=== PATIENT | female | born 1955 ===

== ENCOUNTER 2017-02-19 01:19 | Inpatient (IN) ==
--- NOTE | 2017-02-19 01:43 | Emergency Department Note ---
Davin Shipman Brittany, am scribing for, and in the presence of, Manohar Martínez MD 01:35. Mauricio Shipman Robert M, MD, personally performed the services described in this documentation, ascribed by Viridiana Jin in my presence, and it is both accurate and complete . Arrival - Arrival Chief Complaint: Shortness of Breath Stated Complaint: short ED Nursing Triage Note: patient to ED via EMS as a transfer from [facility] for further evaluation of elevated BNP, troponin, and D Dimer. patient has been SOB and couging for greater than 1 week. Mode of Arrival: Stretcher Limitations: No Limitations Source: Patient, RN Notes Reviewed Time Seen by Provider: 02/19/17 01:31 - History of Present Illness HPI Narrative: Patient is a 61 y/o [place] female presenting to the ED by EMS from [facility] for further evaluation of elevated BNP, Troponin, and D Dimer. Patient states that she presented to [facility] with c/o dyspnea, cough, and chest pain. Patient reports that chest pain is worsened upon coughing and describes this pain as sharp. Pain radiates under bilateral breasts and into her back. Patient states that after 3 breathing treatments at [facility], breathing became somewhat better for her. Patient in room has an oxygen saturation of 100% on 2L via NC. She has no other complaint/pain. Allergies/Adverse Reactions: Allergies Allergy/AdvReac Type Severity Reaction Status Date / Time clonidine AdvReac Fainting Verified 02/19/17 01:24 Home Medications: Home Medications Medication Instructions Recorded Confirmed Type B-Complex with Vitamin C [Vitamin 1 each PO BEDTIME 05/05/15 06/19/16 History B-Complex with Vit C] Calcium Acetate 1,334 mg PO TID W/MEALS 05/05/15 06/19/16 History Docusate Sodium 100 mg PO DAILY 05/05/15 06/19/16 History Lisinopril 40 mg PO DAILY 05/05/15 06/19/16 History Acetaminophen Tab [Tylenol Tab] 650 mg PO Q6H PRN #0 tablet 05/08/15 06/19/16 Rx Aspirin EC Tab 81 mg PO DAILY tablet 05/08/15 06/19/16 Rx Clorazepate [Tranxene] 3.75 mg PO BID #60 tablet 05/08/15 06/19/16 Rx Insulin Detemir [Levemir] 6 unit SUBCUT DAILY W/SUPPER #0 05/08/15 06/19/16 Rx Iron Sucrose [Venofer] 50 mg IV WITH DIALYSIS PRN #0 vial 05/08/15 06/19/16 Rx Isosorbide Mononitrate [Imdur] 30 mg PO DAILY #30 tablet 05/08/15 06/19/16 Rx Multivitamin (Berocca) [Berocca] 1 tablet PO BEDTIME #30 tablet 05/08/15 Rx NIFEdipine XL TAB [Procardia Xl] 90 mg PO BEDTIME #30 tablet 05/08/15 06/19/16 Rx HYDROcodone/ACETAMIN 7.5-325 1 tablet PO Q4H PRN #20 tablet 02/03/16 06/19/16 Rx [[place] 7.5-325] hydrALAZINE TAB [Apresoline Tab] 25 mg PO TID 02/19/17 02/19/17 History Review of System - Review of System 12 point system: reviewed and no additional remarkable complaints except as stated - Review of System Constitutional: Absent: chills, fever Eyes: Absent: vision change Respiratory: Present: cough, respiratory distress, wheezing Cardiovascular: Present: chest pain Gastrointestinal: Absent: abdominal pain, nausea, vomiting, diarrhea, constipation Genitourinary female: Absent: dysuria, frequency, urgency Musculoskeletal: Present: back pain. Absent: arm pain, leg pain, neck pain Skin: Absent: rash Neurological: Absent: headache Psychiatric: Absent: anxiety, depression Medical,Surgical,& Family Hx - Medical History Neurology: History of: TIA HEENT: History of: HEENT Problems (sinus) Endocrine: History of: Diabetes Mellitus (NIDDM) Respiratory: History of: Obstructive Sleep Apnea Renal: History of: Dialysis, Renal Failure, Renal Problems (End Stage Renal Disease) Gastrointestinal: History of: GERD Musculoskeletal: History of: Musculoskeletal Problems (chronic leg cramps) Hematology: History of: Anemia (he may of chronic disease) - Surgical History HEENT Surgeries: Surgical HX of: Tonsilectomy & Adenoidectomy (tonsillectormy) Abdominal Surgeries: Surgical HX of: Cholecystectomy Reproductive Surgeries: Surgical HX of;: Gynecologic Surgery (Total hysterectomy ), Hysterectomy - Family History Family History: Reports;: Family Cancer (her father had colon cancer), Family Diabetes, Family Heart Disease (both of her parents had MIs), Family Hypertension (Mother) - Social History Smoking Status: Never smoker Frequency of Alcohol Use: None Type of Drug Use: None Exam Vital Signs: Vital Signs Temperature 98.5 F 02/19/17 01:29 Pulse Rate 95 H 02/19/17 05:32 Respiratory Rate 18 02/19/17 05:32 Blood Pressure 179/71 02/19/17 05:32 O2 Sat by Pulse Oximetry 98 02/19/17 05:32 - General General appearance: alert, in no apparent distress - Head Head exam: Present: atraumatic, normocephalic, normal inspection - Eye Eye exam: Present: normal appearance, PERRL, EOMI - ENT ENT exam: Present: normal exam, normal oropharynx - Neck Neck exam: Present: normal inspection, full ROM, trachea midline - Chest Chest inspection: Present: normal inspection, symmetric chest wall rise - Respiratory Respiratory exam: Present: rhonchi (bilateral rhonchi), other (oxygen saturation of 100% on 2L via NC). Absent: normal lung sounds bilaterally - Cardiovascular Cardiovascular exam: Present: regular rate, normal rhythm, normal heart sounds. Absent: murmur, rubs, gallop - Abdominal Exam Abdominal exam: Present: soft, normal bowel sounds. Absent: distention, tenderness - Extremities Exam Extremities exam: Present: normal inspection - Back Exam Back exam: Present: normal inspection - Neurological Exam Neurological exam: Present: alert, oriented X3, CN II-XII intact. Absent: motor sensory deficit - Psychiatric Psychiatric exam: Present: normal affect, normal mood - Skin Skin exam: Present: warm, dry, intact, normal color Course - Consultations Consultation #1: Dr. Perdomo, the hospitalist will admit the patient. Time: 02:29 Results - Labs Lab Results: I have reviewed the patients labs Labs: Total Creatine Kinase 125 U/L (26-192) 02/19/17 01:41 CK-MB (CK-2) 1.1 U/L (0.5-3.6) 02/19/17 01:41 Troponin I 0.028 NG/ML (0.00-0.045) 02/19/17 01:41 B-Natriuretic Peptide 524 PG/ML (2-100) H 02/19/17 01:41 - Diagnostic Findings Procedure: Chest x-ray: image reviewed by me (Pulmonary edema demonstrated on chest x-ray from [facility] Disposition Clinical Impression: ESRD (end stage renal disease) on dialysis, HTN (hypertension), Diabetes, Congestive heart failure, Pleuritic chest pain Case discussed with: patient, patient's family Disposition: Still a Patient Condition: Stable Time of Disposition: 02:29
[2017-02-19 02:38] LABS: Troponin I Only 0.028 NG/ML (0.00-0.045)
--- NOTE | 2017-02-19 05:27 | Hospitalist History & Physical ---
Assessment and Plan (1) Acute on chronic heart failure Status: Acute Assessment and plan: Patient is not sure of her dry weight but with the crackles and orthopnea it is not likely she is getting enough fluid pulled off on dialysis in relation to her intake of fluids As needed nitroglycerin for dyspnea Nasal cannula oxygen and monitor on pulse oximetry Respiratory status is stable Unable to treat with diuretics given lack of residual renal function Consult nephrology for dialysis in the morning Current Visit: Yes (2) Pleuritic chest pain Status: Acute Assessment and plan: Likely secondary to coughing low concern for ACS Current Visit: Yes (3) Diabetes Status: Chronic Assessment and plan: Reportedly takes only Levemir 6 units daily at home. Hold this for now. 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 Currently electrolytes and acid-base status is stable. She does seem volume overloaded however and needs dialysis tomorrow. Nephrology consulted. Her primary studio musician is Dr. Chisholm Current Visit: Yes (5) HTN (hypertension) Status: Acute Assessment and plan: Difficult to control secondary to sleep apnea and ESRD Continue home hydralazine, lisinopril, ISMN, Procardia Removing volume on dialysis will likely improve the blood pressure Current Visit: Yes Qualifiers: Hypertension type: secondary to other renal disorders Qualified Code(s): I15.1 - Hypertension secondary to other renal disorders; N28.89 - Other specified disorders of kidney and ureter History of Present Illness Chief complaint: Shortness of breath History of present illness: Ms. Márquez is a 61 year old female with history of end-stage renal disease, receiving dialysis TTS at [facility] via a right femoral aVF, TIA, hypertension, B12 and vitamin D deficiencies, insulin-dependent diabetes, congestive heart failure the presented with a chief complaint of shortness of breath. Onset abrupt. Duration 1 week. Exacerbated by lying down and exertion. Relieved by sitting up and nebs treatments. Associated with sinus congestion, subjective fever, minimally productive cough of clear sputum, pleuritic chest pain worse on the right. Has chronic lower extremity swelling. Patient does not believe that she is drinking excessive fluids. She denied missing any dialysis sessions. She does not make much urine. She is unsure whether or not she feels any improvement after her regular dialysis sessions this week. She presented first to the [facility] and then was transferred to [place]. At the other facility she was given Rocephin, Symbicort. Dr. Chisholm is her studio musician. I have reviewed the workup in the emergency department of both facilities including labs and imaging data. I have discussed her case with the emergency room providers. I discussed CODE STATUS with her and she requested DO NOT RESUSCITATE. Home Medications Medication Instructions Recorded Confirmed Type hydrALAZINE TAB [Apresoline Tab] 25 mg PO TID 02/19/17 02/19/17 History Allergies Allergy/AdvReac Type Severity Reaction Status Date / Time clonidine AdvReac Fainting Verified 02/19/17 01:24 Medical,Surgical,& Family Hx - Medical History Cardio: History of: Hypertension Neurology: History of: TIA HEENT: History of: HEENT Problems (sinus) Endocrine: History of: Diabetes Mellitus (IDDM) Respiratory: History of: Obstructive Sleep Apnea Renal: History of: Dialysis, Renal Failure, Renal Problems (End Stage Renal Disease) Gastrointestinal: History of: GERD Musculoskeletal: History of: Musculoskeletal Problems (chronic leg cramps) Hematology: History of: Anemia (he may of chronic disease) - Surgical History Cardiac Surgeries: Sugical HX of: Vascular Access Devices HEENT Surgeries: Surgical HX of: Tonsilectomy & Adenoidectomy (tonsillectormy) Abdominal Surgeries: Surgical HX of: Cholecystectomy Reproductive Surgeries: Surgical HX of;: Gynecologic Surgery (Total hysterectomy ), Hysterectomy - Family History Family History: Reports;: Family Cancer (her father had colon cancer), Family Diabetes, Family Heart Disease (both of her parents had MIs), Family Hypertension (Mother) - Social History Smoking Status: Never smoker Frequency of Alcohol Use: None Type of Drug Use: None Marital Status: Single Lives With:: Alone Functional capacity: uses cane/walker Review of systems: - Constitutional Constitutional: Present: Fevers absent: chills, fatigue, night sweats, weight loss - EENT Eyes: Absent: blurry vision Ears: Absent: decreased hearing, ear pain Nose, mouth and throat: Present: Nasal congestion, sore throat - Cardiovascular Cardiovascular: Present: Pleuritic chest pain on right - Respiratory Respiratory: Present: cough, dyspnea - Gastrointestinal Gastrointestinal: Absent: abdominal pain, constipation, diarrhea, dysphagia, hematemesis, hematochezia, melena, nausea, vomiting - Genitourinary Genitourinary: Present: Makes little urine - Musculoskeletal Musculoskeletal: Absent: arthralgias, joint swelling, myalgias - Neurological Neurological: Present: Diabetic nephropathy in bilateral feet absent: confusion , dizziness, focal weakness, headache(s), syncope - Psychiatric Psychiatric: Absent: anxiety, depression - Endocrine Endocrine: Absent: cold intolerance, heat intolerance, polydipsia, polyuria - Hematologic/Lymphatic Hematologic/Lymphatic: Absent: easy bleeding, easy bruising, lymphadenopathy Exam - Constitutional Vitals: Period Temp Pulse Resp BP Sys/Barrett Pulse Ox Last 24 Hr 98.5 F-98.5 F 79-100 11-20 155-173/59-80 99-100 General appearance: over weight (Middle-aged [place] female sitting up in a stretcher pleasant cooperative) Exam: - Eye Eye exam: Present: EOMI. Absent: conjunctival injection, scleral icterus Pupils: Present: EDWIN - ENT ENT exam: Present: normal external ear exam, normal oropharynx - Expanded ENT Exam Mouth exam: Present: moist - Neck Neck exam: Present: normal inspection. Absent: lymphadenopathy, thyromegaly - Respiratory Respiratory exam: Present: Bibasilar wet crackles. Absent: wheezes - Cardiovascular Cardiovascular exam: Present: regular rate and rhythm. Absent: diastolic murmur , systolic murmur Chest: Right chest pain reproducible with palpation Peripheral: AVF and right groin with good thrill - GI/Abdominal GI/Abdominal exam: Present: normal bowel sounds, soft. Absent: distended, hyperactive bowel sounds, hypoactive bowel sounds, organomegaly, tenderness, rebound - Extremities Exam Extremities exam: Present: Mild bilateral lower extremity edema - Neurological Exam Neurological exam: Present: alert, oriented X3, CN II-XII intact. Absent: motor sensory deficit - Psychiatric Psychiatric exam: Present: normal affect - Skin Skin exam: Present: warm, dry. Absent: diaphoretic, rash Results - EKG EKG results: sinus rhythm - Diagnostic Findings Procedure: Chest x-ray: report reviewed by me
[2017-02-19] MEDS ORDERED: DEXTROSE 50% 25 GM/50 ML VIAL IV PRN (05:42)
[2017-02-19] MEDS ORDERED: ACETAMINOPHEN 325 MG TABLET PO PRN (05:42)
[2017-02-19] MEDS ORDERED: NITROGLYCERIN SL 0.4 MG TABLET SL PRN (05:42)
[2017-02-19] MEDS ORDERED: GLUCAGON 1 MG VIAL IM PRN (05:42)
[2017-02-19] MEDS: HEPARIN 5,000 UNIT/1 ML VIAL SUBCUT SCH ×3 (06:13→22:04)
[2017-02-19] MEDS: LISINOPRIL 20 MG TABLET PO SCH (08:24)
[2017-02-19] MEDS: CALCIUM ACETATE 667 MG CAPSULE PO SCH ×3 (08:25→17:02)
[2017-02-19] MEDS: ASPIRIN EC 81 MG TABLET PO SCH (08:25)
[2017-02-19] MEDS: ISOSORBIDE MONONITRATE 30 MG TABLET PO SCH (08:25)
--- NOTE | 2017-02-19 08:35 | Nephrology Consult Note ---
History of Present Illness Chief complaint: ESRD History of present illness: Ms. Márquez is a 61 year old female with end-stage renal disease. She has underlying diabetes mellitus and dialyzes at the facility a few dialysis unit. She was sent from [facility] after complaining of a cough and some shortness of breath. Chest x-ray reviewed at the [facility] but not available to us now is said to have demonstrated volume overload. On physical exam she is in no distress she is eating. She has a chest with bibasilar rales and heart without rub or gallop. Abdomen soft nontender extremities without edema and she has a right groin [place] graft which is patent. Lab available here demonstrates a BNP of about 500. Impression is end-stage renal disease #2 volume overload which appears to be mild #3 diabetes mellitus. Plan hemodialysis today with attempted volume removal #2 we will get a chest x -ray here tomorrow Home Medications Medication Instructions Recorded Confirmed Type B-Complex with Vitamin C [Vitamin 1 each PO BEDTIME 05/05/15 02/19/17 History B-Complex with Vit C] Calcium Acetate 1,334 mg PO TID W/MEALS 05/05/15 02/19/17 History Docusate Sodium 100 mg PO DAILY 05/05/15 02/19/17 History Lisinopril 40 mg PO DAILY 05/05/15 02/19/17 History Acetaminophen Tab [Tylenol Tab] 650 mg PO Q6H PRN #0 tablet 05/08/15 02/19/17 Rx Aspirin EC Tab 81 mg PO DAILY tablet 05/08/15 02/19/17 Rx Clorazepate [Tranxene] 3.75 mg PO BID #60 tablet 05/08/15 02/19/17 Rx Insulin Detemir [Levemir] 6 unit SUBCUT DAILY W/SUPPER #0 05/08/15 02/19/17 Rx Iron Sucrose [Venofer] 50 mg IV WITH DIALYSIS PRN #0 vial 05/08/15 02/19/17 Rx Isosorbide Mononitrate [Imdur] 30 mg PO DAILY #30 tablet 05/08/15 02/19/17 Rx Multivitamin (Berocca) [Berocca] 1 tablet PO BEDTIME #30 tablet 05/08/15 Rx NIFEdipine XL TAB [Procardia Xl] 90 mg PO BEDTIME #30 tablet 05/08/15 02/19/17 Rx HYDROcodone/ACETAMIN 7.5-325 1 tablet PO Q4H PRN #20 tablet 02/03/16 02/19/17 Rx [[place] 7.5-325] hydrALAZINE TAB [Apresoline Tab] 25 mg PO TID 02/19/17 02/19/17 History Allergies Allergy/AdvReac Type Severity Reaction Status Date / Time clonidine AdvReac Fainting Verified 02/19/17 01:24 Medical,Surgical,& Family Hx - Medical History Cardio: History of: Hypertension Neurology: History of: TIA HEENT: History of: HEENT Problems (sinus) Endocrine: History of: Diabetes Mellitus (IDDM), Diabetes Mellitus (NIDDM) Respiratory: History of: Obstructive Sleep Apnea Renal: History of: Dialysis, Renal Failure, Renal Problems (End Stage Renal Disease) Gastrointestinal: History of: GERD Musculoskeletal: History of: Musculoskeletal Problems (chronic leg cramps) No history of: Amputation Hematology: History of: Anemia (he may of chronic disease) - Surgical History Cardiac Surgeries: Sugical HX of: Vascular Access Devices HEENT Surgeries: Surgical HX of: Tonsilectomy & Adenoidectomy (tonsillectormy) Abdominal Surgeries: Surgical HX of: Cholecystectomy Reproductive Surgeries: Surgical HX of;: Gynecologic Surgery (Total hysterectomy ), Hysterectomy - Family History Family History: Reports;: Family Cancer (her father had colon cancer), Family Diabetes, Family Heart Disease (both of her parents had MIs), Family Hypertension (Mother) - Social History Smoking Status: Never smoker Frequency of Alcohol Use: None Type of Drug Use: None Review of Systems 12 point system: reviewed and no additional remarkable complaints except as stated Exam - Vital Signs Vital signs: Period Temp Pulse Resp BP Sys/Barrett Pulse Ox Last 24 Hr 98.3 F 88-95 18-22 179-186/71-79 98-100 - General Appearance General appearance: well-developed, well-nourished, appears started age EENT: ATNC Neck: no JVD, no thyromegaly, no carotid bruit, supple Respiratory: no kyphosis, no scoliosis Cardiology: no murmurs, no rub, no gallops, no edema, regular rate, regular rhythm, normal S1, normal S2 Gastrointestinal: normoactive bowel sounds Integumentary: no rash, warm and dry Neurologic: no focal deficit, no asterixis, alert and oriented x3, reflexes 2+ and symmetric, gait normal, strength 5/5 Musculoskeletal: no deformities, no erythema, no cyanosis, no clubbing Psychiatric: mood/affect appropriate (R groin AV graft patent), cooperative Assessment and Plan (1) ESRD (end stage renal disease) on dialysis Status: Chronic Current Visit: Yes (2) Diabetes Status: Chronic Current Visit: Yes Qualifiers: Diabetes mellitus type: type 2 Diabetes mellitus complication detail: with chronic kidney disease Diabetes mellitus nursing home insulin use: with nursing home use Chronic kidney disease stage: on chronic dialysis Qualified Code(s) : E11.610 - Type 2 diabetes mellitus with diabetic neuropathic arthropathy Specialty Discharge - Follow Up or Referrals - Speciality Discharge Instructions Nephrology Instructions: Hemodialysis today
[2017-02-19] MEDS: INSULIN LISPRO 100 UNIT/ML SUBCUT SCH ×4 (09:13→20:42)
--- NOTE | 2017-02-19 11:43 | Dialysis Note ---
Dialysis Note - Dialysis Note Ms. Márquez is seen during her hemodialysis. She is tolerating dialysis well and we are attempting to remove 3 kg of volume this will result in a lower weight than she has been and hopefully that will help some of her shortness of breath. A chest x-ray is to be done tomorrow.
[2017-02-19] MEDS: ALBUTEROL/IPRATROPIUM 3 ML NEB RESP TX PRN (18:41)
[2017-02-20] MEDS: ALBUTEROL/IPRATROPIUM 3 ML NEB RESP TX PRN ×3 (00:36→15:16)
[2017-02-20] MEDS: HEPARIN 5,000 UNIT/1 ML VIAL SUBCUT SCH ×2 (04:59→15:30)
[2017-02-20] MEDS: INSULIN LISPRO 100 UNIT/ML SUBCUT SCH ×4 (07:23→22:00)
[2017-02-20] MEDS: CALCIUM ACETATE 667 MG CAPSULE PO SCH ×3 (07:46→16:10)
[2017-02-20] MEDS: LISINOPRIL 20 MG TABLET PO SCH (08:05)
[2017-02-20] MEDS: ISOSORBIDE MONONITRATE 30 MG TABLET PO SCH (08:05)
[2017-02-20] MEDS: ASPIRIN EC 81 MG TABLET PO SCH (08:05)
--- NOTE | 2017-02-20 09:24 | Nephrology Progress Note ---
Nephrology - PN: Subj Interval history: Ms. Vania Márquez is improved following yesterday's dialysis. We attempted to remove a good bit of fluid to decrease her dry weight. Today's chest x-ray still demonstrates changes compatible with fluid overload. She does say that she thinks she lost weight lately due to anorexia. She has some end expiratory wheeze but is generally improved and we will make efforts to further decrease her weight with dialysis. Dr. Chisholm will follow her for nephrology beginning tomorrow. Exam (PN)-Nephrology - Vital Signs Vital signs: Period Temp Pulse Resp BP Sys/Barrett Pulse Ox Last 24 Hr 97.0 F-98.9 F 85-92 16-20 125-167/54-79 94-99 Assessment and Plan (1) ESRD (end stage renal disease) on dialysis Status: Chronic Current Visit: Yes (2) Diabetes Status: Chronic Current Visit: Yes Qualifiers: Diabetes mellitus type: type 2 Diabetes mellitus complication detail: with chronic kidney disease Diabetes mellitus correction insulin use: with correction use Chronic kidney disease stage: on chronic dialysis Qualified Code(s) : E11.610 - Type 2 diabetes mellitus with diabetic neuropathic arthropathy
--- NOTE | 2017-02-20 10:27 | Hospitalist Progress Note ---
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 Reports chest congestion and a nose bleed overnight. Will switch to humidified air. HD performed yesterday, nephrology assisting. Exam - Constitutional Vitals: Period Temp Pulse Resp BP Sys/Barrett Pulse Ox Last 24 Hr 97.0 F-98.9 F 85-94 16-20 125-167/54-79 94-99 General appearance: over weight - Head Head exam: Present: normocephalic, atraumatic - Eye Eye exam: Present: EOMI Pupils: Present: EDWIN - ENT ENT exam: Present: normal exam - Neck Neck exam: Present: normal inspection - Respiratory Respiratory exam: Present: clear to auscultation bilaterally. Absent: rhonchi, wheezes - Cardiovascular Cardiovascular exam: Present: regular rate and rhythm - GI/Abdominal GI/Abdominal exam: Present: normal bowel sounds, soft. Absent: tenderness, rebound - Extremities Exam Extremities exam: Present: normal inspection - Back Exam Back exam: Present: normal inspection - Neurological Exam Neurological exam: Present: alert, oriented X3 - Psychiatric Psychiatric exam: Present: normal affect, normal mood - Skin Skin exam: Present: warm, intact Quality Measures - VTE Contraindication to Mechanical VTE Prophylaxis: Ischemic Vascular Disease
--- NOTE | 2017-02-20 10:54 | XRay Report ---
Exam: Chest 2 views Date: February 20, 2017 at 7:29 AM Comparison: Chest 2 views February 18, 2017 Reason: Follow-up volume overload Findings: There is borderline cardiomegaly and prominent calcified plaque at the thoracic aorta. There may also be calcified mediastinal and hilar lymph nodes. There are scattered opacities within both lower lung zones, and prominence of the interstitial markings bilaterally. This likely represents pulmonary edema and atelectasis, but pneumonia is not excluded. No pneumothorax is identified, but there is mild bilateral pleural fluid. The osseous structures appear stable. Surgical clips are noted within the right upper abdomen. Impression: There is decreased atelectasis and possible decreased pleural fluid at the right lung base. The study is otherwise similar to before. PROCEDURE INTERPRETED AT [facility] DEPARTMENT OF RADIOLOGY Final Report Signed by: Dr. Luis Hidalgo
[2017-02-20] MEDS: guaiFENesin/DM ER 600-30 MG TABLET PO SCH (22:01)
[2017-02-21] MEDS: HEPARIN 5,000 UNIT/1 ML VIAL SUBCUT SCH ×3 (00:10→17:59)
[2017-02-21 07:39] LABS: Basophils % 0.3 % (0.0-0.8); Eosinophils # 0.5 10*3/uL (0.0-0.87); Eosinophils % 6.6 % (0.00-10.9); Hematocrit 28.9 VOL% (35.7-47.0); Hemoglobin 9.3 GM/DL (12.0-16.0); Immature Granulocytes % 0.4 %; Immature Granulocytes Absolute 0.03 #; Lymphocytes # 1.1 10*3/uL (1.4-4.0); Lymphocytes % 15.3 % (21.3-54.2); Mean Corpuscular HGB Conc 32.2 GM/DL (32-36); Mean Corpuscular Hemoglobin 30 PG (27-34); Mean Corpuscular Volume 94.1 FL (87-102); Mean Platelet Volume 10.8 FL (9.6-12.0); Monocytes # 0.7 10*3/uL (0.11-0.8); Monocytes % 9.7 % (1.7-12.7); Neutrophils # 4.7 10*3/uL (1.4-7.4); Neutrophils % 67.7 % (38.7-73.9); Platelet Count 153 T/CUMM (130-400); Red Blood Count 3.07 MC/CUMM (3.8-5.5); Red Cell Distribution Width 15.7 % (9.3-17.3)
[2017-02-21 08:15] LABS: Calcium 9.1 MG/DL (8.5-10.1); Magnesium 2.5 MG/DL (1.8-2.4); Osmolality,Calculated 288.8 MOS/KG (273-304); Potassium 5.2 MMOL/L (3.5-5.1)
[2017-02-21] MEDS ORDERED: hydrALAZINE 25 MG TABLET ONE (09:04)
[2017-02-21] MEDS: LISINOPRIL 20 MG TABLET PO SCH (09:12)
[2017-02-21] MEDS: guaiFENesin/DM ER 600-30 MG TABLET PO SCH ×2 (09:12→20:24)
[2017-02-21] MEDS: ISOSORBIDE MONONITRATE 30 MG TABLET PO SCH (09:12)
[2017-02-21] MEDS: ASPIRIN EC 81 MG TABLET PO SCH (09:12)
[2017-02-21] MEDS: INSULIN LISPRO 100 UNIT/ML SUBCUT SCH ×4 (09:13→20:05)
[2017-02-21] MEDS: CALCIUM ACETATE 667 MG CAPSULE PO SCH ×3 (09:13→17:00)
--- NOTE | 2017-02-21 12:24 | Nephrology Progress Note ---
Nephrology - PN: Subj Interval history: She still has some shortness of breath and nonproductive cough. She denies pleuritic chest pain. She has been afebrile. Exam (PN)-Nephrology - Vital Signs Vital signs: Period Temp Pulse Resp BP Sys/Barrett Pulse Ox Last 24 Hr 98.0 F-99.1 F 83-100 18-20 144-157/60-73 90-97 Exam: ENT: Normal Cardiovascular: Regular rate and rhythm. No murmur rub or gallop Lungs: Bibasilar rales. Right greater than left Extremities: No edema - Lab 02/21/17 06:02 02/21/17 06:02 Most recent lab results Calcium 9.1 MG/DL (8.5-10.1) 02/21/17 06:02 Magnesium 2.5 MG/DL (1.8-2.4) H 02/21/17 06:02 Assessment and Plan (1) ESRD (end stage renal disease) on dialysis Status: Acute Assessment and plan: 61-year-old woman with: * ESRD. Dialyzed Tuesday * Pulmonary edema. She will be dialyzed again today with volume removal as tolerated * Diabetes mellitus * Hypertension Current Visit: Yes (2) Pulmonary edema Status: Acute Current Visit: Yes (3) Diabetes Status: Acute Current Visit: Yes (4) HTN (hypertension) Status: Acute Current Visit: Yes
--- NOTE | 2017-02-21 13:50 | Hospitalist Progress Note ---
Assessment and Plan (1) ESRD (end stage renal disease) on dialysis Status: Chronic Assessment and plan: HD per nephrology, TTS schedule outpatient Current Visit: Yes (2) HTN (hypertension) Status: Chronic Current Visit: Yes Qualifiers: Hypertension type: secondary to other renal disorders Qualified Code(s): I15.1 - Hypertension secondary to other renal disorders; N28.89 - Other specified disorders of kidney and ureter (3) Diabetes Status: Chronic Current Visit: Yes Qualifiers: Diabetes mellitus type: type 2 Diabetes mellitus complication detail: with chronic kidney disease Diabetes mellitus supervisor intermediates insulin use: with penitentiary use Chronic kidney disease stage: on chronic dialysis Qualified Code(s) : E11.610 - Type 2 diabetes mellitus with diabetic neuropathic arthropathy (4) Acute on chronic heart failure Status: Acute Assessment and plan: Removing fluid with HD, nephrology assisting Will undergo HD today Current Visit: Yes Hospitalist: Subjective Interval history: No acute events overnight. Only complaint was of headache this am, denied sob. Nephrology to dialyize today. Possible discharge soon. Exam - Constitutional Vitals: Period Temp Pulse Resp BP Sys/Barrett Pulse Ox Last 24 Hr 98.0 F-99.1 F 83-100 18-20 144-157/60-73 90-97 General appearance: over weight - Head Head exam: Present: normocephalic, atraumatic - Eye Eye exam: Present: EOMI Pupils: Present: EDWIN - ENT ENT exam: Present: normal exam - Neck Neck exam: Present: normal inspection - Respiratory Respiratory exam: Present: clear to auscultation bilaterally. Absent: rhonchi, wheezes - Cardiovascular Cardiovascular exam: Present: regular rate and rhythm - GI/Abdominal GI/Abdominal exam: Present: normal bowel sounds, soft. Absent: tenderness, rebound - Extremities Exam Extremities exam: Present: normal inspection - Back Exam Back exam: Present: normal inspection - Neurological Exam Neurological exam: Present: alert, oriented X3 - Psychiatric Psychiatric exam: Present: normal affect, normal mood - Skin Skin exam: Present: warm, intact Results - Labs CBC & BMP: 02/21/17 06:02 02/21/17 06:02 Quality Measures - VTE Contraindication to Mechanical VTE Prophylaxis: Ischemic Vascular Disease
[2017-02-22] MEDS: HEPARIN 5,000 UNIT/1 ML VIAL SUBCUT SCH ×4 (00:01→23:09)
[2017-02-22 05:33] LABS: Basophils % 0.4 % (0.0-0.8); Eosinophils # 0.5 10*3/uL (0.0-0.87); Eosinophils % 8.6 % (0.00-10.9); Hematocrit 27.7 VOL% (35.7-47.0); Hemoglobin 8.7 GM/DL (12.0-16.0); Immature Granulocytes % 0.4 %; Immature Granulocytes Absolute 0.02 #; Lymphocytes # 1.1 10*3/uL (1.4-4.0); Lymphocytes % 20.2 % (21.3-54.2); Mean Corpuscular HGB Conc 31.4 GM/DL (32-36); Mean Corpuscular Hemoglobin 30 PG (27-34); Mean Corpuscular Volume 94.5 FL (87-102); Mean Platelet Volume 9.7 FL (9.6-12.0); Monocytes # 0.5 10*3/uL (0.11-0.8); Monocytes % 8.8 % (1.7-12.7); Neutrophils # 3.5 10*3/uL (1.4-7.4); Neutrophils % 61.6 % (38.7-73.9); Platelet Count 149 T/CUMM (130-400); Red Blood Count 2.93 MC/CUMM (3.8-5.5); Red Cell Distribution Width 15.2 % (9.3-17.3); White Blood Count 5.6 T/CUMM (4-12)
[2017-02-22 06:05] LABS: Calcium 8.9 MG/DL (8.5-10.1); Magnesium 2.4 MG/DL (1.8-2.4); Osmolality,Calculated 274.4 MOS/KG (273-304); Potassium 4.4 MMOL/L (3.5-5.1)
[2017-02-22] MEDS: INSULIN LISPRO 100 UNIT/ML SUBCUT SCH ×4 (08:08→20:05)
[2017-02-22] MEDS: guaiFENesin/DM ER 600-30 MG TABLET PO SCH ×2 (08:41→20:17)
[2017-02-22] MEDS: CALCIUM ACETATE 667 MG CAPSULE PO SCH ×3 (08:41→16:36)
[2017-02-22] MEDS: ASPIRIN EC 81 MG TABLET PO SCH (08:42)
--- NOTE | 2017-02-22 14:30 | Hospitalist Progress Note ---
Assessment and Plan (1) Fluid overload Status: Acute Assessment and plan: Patient is being dialysed Nephrology is following Current Visit: Yes (2) ESRD (end stage renal disease) on dialysis Status: Chronic Assessment and plan: continue Nephrology's recommendations Current Visit: Yes (3) HTN (hypertension) Status: Chronic Assessment and plan: stable on current meds Current Visit: Yes Qualifiers: Hypertension type: secondary to other renal disorders Qualified Code(s): I15.1 - Hypertension secondary to other renal disorders; N28.89 - Other specified disorders of kidney and ureter (4) Diabetes Status: Chronic Assessment and plan: controlled on current regime Current Visit: Yes Qualifiers: Diabetes mellitus type: type 2 Diabetes mellitus complication detail: with chronic kidney disease Diabetes mellitus adjunct faculty for medical terminology insulin use: with adjunct faculty for medical terminology use Chronic kidney disease stage: on chronic dialysis Qualified Code(s) : E11.610 - Type 2 diabetes mellitus with diabetic neuropathic arthropathy (5) Acute on chronic heart failure Status: Acute Assessment and plan: continue with dialysis consider an Echo Current Visit: Yes Hospitalist: Subjective Interval history: patient seen. She had a session of dialysis yesterday and will be getting another session today Exam - Constitutional Vitals: Period Temp Pulse Resp BP Sys/Barrett Pulse Ox Last 24 Hr 97.2 F-99 F 69-80 16-20 128-146/55-71 90-100 General appearance: no acute distress - Head Head exam: Present: normal inspection - Respiratory Respiratory exam: Present: rales, stridor, other - Cardiovascular Cardiovascular exam: Present: regular rate and rhythm - GI/Abdominal GI/Abdominal exam: Present: normal bowel sounds - Extremities Exam Extremities exam: Present: normal inspection Results - Labs CBC & BMP: 02/22/17 05:14 02/22/17 05:14 Lab Results: I have reviewed the past 24 hour labs Quality Measures - VTE Contraindication to Mechanical VTE Prophylaxis: Ischemic Vascular Disease
[2017-02-22] MEDS: LISINOPRIL 20 MG TABLET PO SCH (15:09)
[2017-02-22] MEDS: ISOSORBIDE MONONITRATE 30 MG TABLET PO SCH (15:10)
--- NOTE | 2017-02-22 23:02 | Nephrology Progress Note ---
Nephrology - PN: Subj Interval history: Seen during dialysis. Blood pressure stable. Mild SoB persists Exam (PN)-Nephrology - Vital Signs Vital signs: Period Temp Pulse Resp BP Sys/Barrett Pulse Ox Last 24 Hr 98.1 F-99.1 F 69-78 16-20 110-146/50-70 96-100 Exam: ENT: Normal Cardiovascular: Regular rate and rhythm. No murmur rub or gallop Lungs: Bilateral expiratory wheezes Extremities: No edema - Lab 02/22/17 05:14 02/22/17 05:14 Most recent lab results Calcium 8.9 MG/DL (8.5-10.1) 02/22/17 05:14 Magnesium 2.4 MG/DL (1.8-2.4) 02/22/17 05:14 Assessment and Plan (1) ESRD (end stage renal disease) on dialysis Status: Acute Assessment and plan: 61-year-old woman with: * ESRD. Stable during dialysis * Pulmonary edema. Significant volume has been removed during dialysis * Bronchospasm. Parasol frequency increased * Diabetes mellitus * Hypertension Current Visit: Yes (2) Pulmonary edema Status: Acute Current Visit: Yes (3) Diabetes Status: Acute Current Visit: Yes (4) HTN (hypertension) Status: Acute Current Visit: Yes
[2017-02-23] MEDS: ALBUTEROL/IPRATROPIUM 3 ML NEB RESP TX SCH ×4 (00:12→21:16)
[2017-02-23 06:30] LABS: Basophils % 0.7 % (0.0-0.8); Eosinophils # 0.3 10*3/uL (0.0-0.87); Eosinophils % 5.6 % (0.00-10.9); Hematocrit 31.6 VOL% (35.7-47.0); Hemoglobin 10.2 GM/DL (12.0-16.0); Immature Granulocytes % 0.5 %; Immature Granulocytes Absolute 0.03 #; Lymphocytes # 1.2 10*3/uL (1.4-4.0); Lymphocytes % 19.9 % (21.3-54.2); Mean Corpuscular HGB Conc 32.3 GM/DL (32-36); Mean Corpuscular Hemoglobin 31 PG (27-34); Mean Corpuscular Volume 95.5 FL (87-102); Monocytes # 0.6 10*3/uL (0.11-0.8); Monocytes % 9.2 % (1.7-12.7); Neutrophils # 3.9 10*3/uL (1.4-7.4); Neutrophils % 64.1 % (38.7-73.9); Platelet Count 182 T/CUMM (130-400); Red Blood Count 3.31 MC/CUMM (3.8-5.5); White Blood Count 6.1 T/CUMM (4-12)
[2017-02-23 07:07] LABS: Calcium 9.7 MG/DL (8.5-10.1); Osmolality,Calculated 285.4 MOS/KG (273-304); Potassium 5.1 MMOL/L (3.5-5.1)
--- NOTE | 2017-02-23 07:50 | XRay Report ---
XR chest 2V Indication: Wheezing Comparison: Chest x-ray dated February 20, 2017 Technique: Frontal and lateral views of the chest Findings: Continued mild cardiomegaly. Continued small bilateral pleural effusions. Mildly improved consolidation within the posterior left lung base with some residual remaining. Osseous and surrounding soft tissue structures appear grossly unchanged. IMPRESSION: As above. PROCEDURE INTERPRETED AT [facility] DEPARTMENT OF RADIOLOGY Final Report Signed by: Dr Jonathon Santana
[2017-02-23] MEDS: HEPARIN 5,000 UNIT/1 ML VIAL SUBCUT SCH ×2 (08:50→15:00)
[2017-02-23] MEDS: CALCIUM ACETATE 667 MG CAPSULE PO SCH ×3 (08:50→17:14)
[2017-02-23] MEDS: LISINOPRIL 20 MG TABLET PO SCH (08:50)
[2017-02-23] MEDS: ASPIRIN EC 81 MG TABLET PO SCH (08:50)
[2017-02-23] MEDS: INSULIN LISPRO 100 UNIT/ML SUBCUT SCH ×4 (08:50→23:37)
[2017-02-23] MEDS: ISOSORBIDE MONONITRATE 30 MG TABLET PO SCH (08:51)
[2017-02-23] MEDS: guaiFENesin/DM ER 600-30 MG TABLET PO SCH ×2 (08:51→20:07)
--- NOTE | 2017-02-23 11:59 | Hospitalist Progress Note ---
Assessment and Plan (1) Fluid overload Status: Acute Assessment and plan: improving with dialysis Nephrology is following Current Visit: Yes (2) ESRD (end stage renal disease) on dialysis Status: Chronic Assessment and plan: continue Nephrology's recommendations Current Visit: Yes (3) HTN (hypertension) Status: Chronic Assessment and plan: stable on current meds Current Visit: Yes Qualifiers: Hypertension type: secondary to other renal disorders Qualified Code(s): I15.1 - Hypertension secondary to other renal disorders; N28.89 - Other specified disorders of kidney and ureter (4) Diabetes Status: Chronic Assessment and plan: controlled on current regime Current Visit: Yes Qualifiers: Diabetes mellitus type: type 2 Diabetes mellitus complication detail: with chronic kidney disease Diabetes mellitus nursing home insulin use: with nursing home use Chronic kidney disease stage: on chronic dialysis Qualified Code(s) : E11.610 - Type 2 diabetes mellitus with diabetic neuropathic arthropathy (5) Acute on chronic heart failure Status: Acute Assessment and plan: continue with dialysis consider an Echo Current Visit: Yes Hospitalist: Subjective Interval history: Patient seen this am. She feels much better. She had a repeat of dialysis yesterday and will hopefully go home after tomorrow's session. Exam - Constitutional Vitals: Period Temp Pulse Resp BP Sys/Barrett Pulse Ox Last 24 Hr 97.5 F-99.1 F 69-80 16-20 110-156/50-63 98-100 General appearance: no acute distress - Head Head exam: Present: normal inspection - Respiratory Respiratory exam: Present: other (lungs are clearer) - Cardiovascular Cardiovascular exam: Present: regular rate and rhythm - GI/Abdominal GI/Abdominal exam: Present: normal bowel sounds - Extremities Exam Extremities exam: Present: normal inspection - Neurological Exam Neurological exam: Present: alert, oriented X3 Results - Labs CBC & BMP: 02/23/17 06:13 02/23/17 06:13 Lab Results: I have reviewed the past 24 hour labs Quality Measures - VTE Contraindication to Mechanical VTE Prophylaxis: Ischemic Vascular Disease
--- NOTE | 2017-02-23 12:32 | ECHO Report ---
Vania Márquez Exam Date: 02/22/2017 15:54 Referring Physician: Technologist: Pita Louis Age: 61 Ht (in): 63 Wt (lb): 160 Gender: F Exam Location: [facility] Echo Indications: CHF, ESRD, Diabetes, Chest pain, SOB, Edema, HTN BP: 110 / 55 HR: 78 Rhythm: sinus rhythm Technical Quality: Good IMPRESSIONS 1. Left ventricle is normal size with concentric left ventricle hypertrophy. Ejection fraction 55+ percent. 2. Left atrium is mildly dilated. 3. Right-sided chambers are normal size. 4. Sclerotic mitral valve with posterior mitral annular calcification and trace to mild regurgitation. 5. Aortic valve is sclerotic but with normal function without stenosis or regurgitation. 6. Pulmonic and tricuspid valve are unremarkable. 7. Right-sided pressures are normal. 8. Trivial pericardial effusion hematocrit insignificant and a pleural effusion is present. MEASUREMENTS (Male / Female) Normal Values 2D ECHO LV Diastolic Diameter PLAX 4.2 cm 4.2 - 5.9 / 3.9 - 5.3 cm LV Systolic Diameter PLAX 3.1 cm LV Fractional Shortening PLAX 26.5 % IVS Diastolic Thickness 1.7 cm 0.6 - 1.0 / 0.6 - 0.9 cm LVPW Diastolic Thickness 1.4 cm 0.6 - 1.0 / 0.6 - 0.9 cm RV Internal Dim ED PLAX 2.6 cm Aortic Root Diameter 2.4 cm LA Systolic Diameter LX 4.2 cm 3.0 - 4.0 / 2.7 - 3.8 cm DOPPLER TR Peak Velocity 157.0 cm/s TR Peak Gradient 9.9 mmHg FINDINGS Left Ventricle Left ventricle is normal size with moderate concentric left ventricular hypertrophy. No segmental wall motion amount is an ejection fraction is 55+ percent. Right Ventricle Normal right ventricular size and systolic function. Right Atrium Normal right atrial size. Left Atrium Mildly increased left atrial diameter. Mitral Valve Mild mitral valve is sclerotic but with normal motion and trace to mild mitral valve regurgitation. Posterior mitral annular calcification present. Aortic Valve Aortic valve the tricuspid structure with sclerosis without stenosis or regurgitation. Tricuspid Valve Morphologically normal tricuspid valve. Trace tricuspid valve regurgitation. Right-sided pressures are normal. Pulmonic Valve Morphologically normal pulmonic valve. Pericardium Trivial pericardial effusion. pleural effusion present. Aorta Normal size aortic root and proximal ascending aorta. Walker Acevedo MD (Electronically Signed) Final Date: 23 Feb 2017 12:31
--- NOTE | 2017-02-23 14:40 | Nephrology Progress Note ---
Nephrology - PN: Subj Interval history: She is awake and alert. No shortness of breath. Nonproductive cough. Exam (PN)-Nephrology - Vital Signs Vital signs: Period Temp Pulse Resp BP Sys/Barrett Pulse Ox Last 24 Hr 97.5 F-99.1 F 69-82 16-20 110-156/50-63 94-100 Exam: Gen.: Alert and oriented x3. ENT: Pupils equal round reactive to light. EOMs intact. Mucous membranes moist. Neck: Supple. No JVD or bruit. Cardiovascular: Regular rate and rhythm. No murmur rub or gallop Lungs: Minimal rhonchi. No wheezing Abdomen: Soft. Nontender. Positive bowel sounds. No organomegaly Extremities: No edema - Lab 02/23/17 06:13 02/23/17 06:13 Most recent lab results Calcium 9.7 MG/DL (8.5-10.1) 02/23/17 06:13 Magnesium 2.4 MG/DL (1.8-2.4) 02/22/17 05:14 Assessment and Plan (1) ESRD (end stage renal disease) on dialysis Status: Acute Assessment and plan: 61-year-old woman with: * ESRD. Dialysis TTS * Pulmonary edema. Significant volume has been removed during dialysis * Bronchospasm. Resolved. She has residual atelectasis left base. P.o. Levaquin added. * Diabetes mellitus * Hypertension Current Visit: Yes (2) Pulmonary edema Status: Acute Current Visit: Yes (3) Diabetes Status: Acute Current Visit: Yes (4) HTN (hypertension) Status: Acute Current Visit: Yes
[2017-02-23] MEDS ORDERED: LEVOFLOXACIN 250 MG TABLET PO SCH (18:00)
[2017-02-23] MEDS ORDERED: DOCUSATE SODIUM 100 MG CAPSULE PO PRN (19:36)
[2017-02-23] MEDS ORDERED: CALCIUM CARBONATE CHEW 500 MG TABLET PO PRN (19:37)
[2017-02-24] MEDS: ALBUTEROL/IPRATROPIUM 3 ML NEB RESP TX SCH ×3 (00:20→13:09)
[2017-02-24] MEDS: HEPARIN 5,000 UNIT/1 ML VIAL SUBCUT SCH ×2 (01:40→07:53)
[2017-02-24] MEDS: CALCIUM ACETATE 667 MG CAPSULE PO SCH ×2 (07:51→12:46)
[2017-02-24] MEDS: INSULIN LISPRO 100 UNIT/ML SUBCUT SCH ×2 (07:52→12:45)
[2017-02-24] MEDS: guaiFENesin/DM ER 600-30 MG TABLET PO SCH (08:02)
[2017-02-24] MEDS: ISOSORBIDE MONONITRATE 30 MG TABLET PO SCH (08:02)
[2017-02-24] MEDS: ASPIRIN EC 81 MG TABLET PO SCH (08:02)
[2017-02-24] MEDS: LISINOPRIL 20 MG TABLET PO SCH (08:02)
--- NOTE | 2017-02-24 08:02 | Discharge Summary ---
<Rosey Zimmerman - Last Filed: 02/24/17 07:53> Hospital Course - Hospital Course Hospital Course: Ms. Márquez is a 61 year old female with history of end-stage renal disease, receiving dialysis TTS at [facility] via a right femoral aVF, TIA, hypertension, B12 and vitamin D deficiencies, insulin-dependent diabetes, congestive heart failure that presented to the [facility] with a chief complaint of shortness of breath. Pt. was also experiencingsinus congestion, subjective fever, minimally productive cough of clear sputum, pleuritic chest pain worse on the right. Pt. was evaluated at [facility], given Rocephin and Symbicort and then transferred to [place] for further evaluation on 02/19. Pt. was admitted for further eval and treatment of acute on chronic heart failure, htn, esrd, and pleuritic chest pain. Pt is known to Dr. Chisholm. Nephrology was consulted to see patient. Dialysis was scheduled for that same day and a chest xr on 02/20 to monitor status. CXR revealed fluid overload. Pt received HD on 02/21 and 02/22. Pt. tolerated well. Breathing has improved. Pt. will be dialyzed again today and should be ready for discharge. Pt. is to follow up for regularly scheduled dialysis dates. MD to follow. Discharge Plan - Discharge Data Disposition: Home Health Service - Discharge Medications New Acetaminophen Tab [Tylenol Tab] 325 mg PO Q4H PRN #0 tablet PRN Reason: fever, headache/body aches Albuterol/Ipratropium Neb [Duoneb] 3 ml RESP TX RT Q6H Continue Calcium Acetate 1,334 mg PO TID W/MEALS Lisinopril 40 mg PO DAILY Docusate Sodium 100 mg PO DAILY B-Complex with Vitamin C [Vitamin B-Complex with Vit C] 1 each PO BEDTIME Aspirin EC Tab 81 mg PO DAILY tablet Multivitamin (Berocca) [Berocca] 1 tablet PO BEDTIME #30 tablet Isosorbide Mononitrate [Imdur] 30 mg PO DAILY #30 tablet NIFEdipine XL TAB [Procardia Xl] 90 mg PO BEDTIME #30 tablet Clorazepate [Tranxene] 3.75 mg PO BID #60 tablet Acetaminophen Tab [Tylenol Tab] 650 mg PO Q6H PRN #0 tablet PRN Reason: Fever > 100.4 Or Headache Iron Sucrose [Venofer] 50 mg IV WITH DIALYSIS PRN #0 vial PRN Reason: DIALYSIS hydrALAZINE TAB [Apresoline Tab] 25 mg PO TID Levofloxacin Tab [Levaquin Tab] 250 mg PO Q24H #7 tablet Nitroglycerin Sl Tab [Nitrostat] 0.4 mg SL Q5M PRN #10 tablet PRN Reason: Dyspnea guaiFENesin/DM ER 600-30 [Mucinex Dm 600-30 MG] 1 tablet PO BID #7 tablet HYDROcodone/ACETAMIN 7.5-325 [[place] 7.5-325] 1 tablet PO Q4H PRN #20 tablet PRN Reason: Pain Moderate (4-7) Discontinued Insulin Detemir [Levemir] 6 unit SUBCUT DAILY W/SUPPER #0 - Follow Up or Referral - Forms/Instructions Exam - Constitutional Vitals: Period Temp Pulse Resp BP Sys/Barrett Pulse Ox Last 24 Hr 97.6 F-98.7 F 79-91 16-20 123-161/54-100 93-100 Discharge Results Labs on day of discharge: Labs from last 24 hours 02/24/17 02/24/17 02/24/17 11:38 07:58 07:58 WBC 6.8 RBC 2.96 L Hgb 9.0 L Hct 28.2 L MCV 95.3 MCH 30 MCHC 31.9 L RDW 15.1 Plt Count 194 MPV 10.3 Neut % (Auto) 63.8 Lymph % (Auto) 19.7 L Lee % (Auto) 9.4 Eos % (Auto) 5.9 Baso % (Auto) 0.6 Neut # (Auto) 4.4 Lymph # (Auto) 1.3 L Lee # (Auto) 0.6 Eos # (Auto) 0.4 Baso # (Auto) 0.0 Immature Gran % 0.6 Nucleated RBC % 0.0 Immature Gran # 0.04 Nucleated RBCs # 0.00 Sodium 138 Potassium 5.6 H Chloride 102 Carbon Dioxide 24 Anion Gap 17.6 H BUN 64 H Creatinine 6.40 H GFR Calculation 7 BUN/Creatinine Ratio 10.00 Glucose 95 POC Glucose 112 H Calculated Osmolality 292.7 Calcium 9.2 02/24/17 02/23/17 02/23/17 07:31 20:18 15:34 WBC RBC Hgb Hct MCV MCH MCHC RDW Plt Count MPV Neut % (Auto) Lymph % (Auto) Lee % (Auto) Eos % (Auto) Baso % (Auto) Neut # (Auto) Lymph # (Auto) Lee # (Auto) Eos # (Auto) Baso # (Auto) Immature Gran % Nucleated RBC % Immature Gran # Nucleated RBCs # Sodium Potassium Chloride Carbon Dioxide Anion Gap BUN Creatinine GFR Calculation BUN/Creatinine Ratio Glucose POC Glucose 99 143 H 159 H Calculated Osmolality Calcium DS: Provider Date of admission: 02/23/17 14:47 Primary care physician: Harley Velasquez MD Attending physician on admission: Walker Perdomo MD Discharging clinician: Rosey Zimmerman NP <Paige Steiner - Last Filed: 02/24/17 13:24> Hospital Course - Hospital Course Hospital Course: Patient's vitals are stable. - Time spent with patient Time with patient DS: Greater than 30 minutes (Time spent: 35mins) Diagnosis - Discharge Diagnosis (1) Fluid overload Status: Acute (2) ESRD (end stage renal disease) on dialysis Status: Chronic (3) HTN (hypertension) Status: Chronic (4) Diabetes Status: Chronic (5) Acute on chronic heart failure Status: Acute Discharge Plan - Discharge Data Condition at Discharge: Stable Discharge Diet: heart healthy Activity: resume usual activities as tolerated - Forms/Instructions Additional Discharge Instructions: Follow with PCP in 1week and Nephrology as scheduled. Exam - Constitutional General appearance: no acute distress - Head Head exam: Present: normal inspection - Respiratory Respiratory exam: Present: clear to auscultation bilaterally - Cardiovascular Cardiovascular exam: Present: regular rate and rhythm - GI/Abdominal GI/Abdominal exam: Present: normal bowel sounds - Extremities Exam Extremities exam: Present: normal inspection
[2017-02-24 08:37] LABS: Basophils % 0.6 % (0.0-0.8); Eosinophils # 0.4 10*3/uL (0.0-0.87); Eosinophils % 5.9 % (0.00-10.9); Hematocrit 28.2 VOL% (35.7-47.0); Immature Granulocytes % 0.6 %; Immature Granulocytes Absolute 0.04 #; Lymphocytes # 1.3 10*3/uL (1.4-4.0); Lymphocytes % 19.7 % (21.3-54.2); Mean Corpuscular HGB Conc 31.9 GM/DL (32-36); Mean Corpuscular Hemoglobin 30 PG (27-34); Mean Corpuscular Volume 95.3 FL (87-102); Mean Platelet Volume 10.3 FL (9.6-12.0); Monocytes # 0.6 10*3/uL (0.11-0.8); Monocytes % 9.4 % (1.7-12.7); Neutrophils # 4.4 10*3/uL (1.4-7.4); Neutrophils % 63.8 % (38.7-73.9); Platelet Count 194 T/CUMM (130-400); Red Blood Count 2.96 MC/CUMM (3.8-5.5); Red Cell Distribution Width 15.1 % (9.3-17.3); White Blood Count 6.8 T/CUMM (4-12)
[2017-02-24 09:47] LABS: Calcium 9.2 MG/DL (8.5-10.1); Osmolality,Calculated 292.7 MOS/KG (273-304); Potassium 5.6 MMOL/L (3.5-5.1)
[2017-02-24 17:10] VITALS: BP 122/55
--- NOTE | 2017-02-24 17:46 | Nephrology Progress Note ---
Nephrology - PN: Subj Interval history: Seen during dialysis. No shortness of breath today. Exam (PN)-Nephrology - Vital Signs Vital signs: Period Temp Pulse Resp BP Sys/Barrett Pulse Ox Last 24 Hr 97.6 F-98.6 F 79-91 16-20 122-161/55-100 96-100 Exam: Gen.: Alert and oriented x3. ENT: Pupils equal round reactive to light. EOMs intact. Mucous membranes moist. Neck: Supple. No JVD or bruit. Cardiovascular: Regular rate and rhythm. No murmur rub or gallop Lungs: Clear Abdomen: Soft. Nontender. Positive bowel sounds. No organomegaly Extremities: No edema - Lab 02/24/17 07:58 02/24/17 07:58 Most recent lab results Calcium 9.2 MG/DL (8.5-10.1) 02/24/17 07:58 Magnesium 2.4 MG/DL (1.8-2.4) 02/22/17 05:14 Assessment and Plan (1) ESRD (end stage renal disease) on dialysis Status: Acute Assessment and plan: 61-year-old woman with: * ESRD. Stable during dialysis. Stable for discharge from my standpoint * Pulmonary edema. Resolved * Bronchospasm. Resolved. * Diabetes mellitus * Hypertension (2) Pulmonary edema Status: Acute (3) Diabetes Status: Acute (4) HTN (hypertension) Status: Acute Specialty Discharge - Follow Up or Referrals
== END 2017-02-24 14:43 | disposition home health service (06) | DRG 291 ==
LOC: EDBD → EDUNIT# → N.ED 01:19 → N.EDINP 01:19 → SUATTDRO 05:14 → N.5E 05:32
PROVIDERS: ADMIT Student in an Organized Health Care Education/Training Program; ATTEND Internal Medicine

== ENCOUNTER 2017-09-09 21:38 | Inpatient (IN) ==
[2017-09-09] MEDS ORDERED: ONDANSETRON 4 MG/2 ML VIAL IV PRN (23:35)
[2017-09-09] MEDS ORDERED: ALBUTEROL/IPRATROPIUM 3 ML NEB RESP TX PRN (23:39)
[2017-09-09] MEDS ORDERED: hydrALAZINE 20 MG/1 ML VIAL IV PRN (23:40)
[2017-09-10 02:04] LABS: Basophils # 0.1 10*3/uL (0.0-0.2); Basophils % 0.5 % (0.0-0.8); Eosinophils # 0.2 10*3/uL (0.0-0.87); Eosinophils % 1.7 % (0.00-10.9); Hematocrit 27.9 VOL% (35.7-47.0); Hemoglobin 9.1 GM/DL (12.0-16.0); Immature Granulocytes % 0.4 %; Immature Granulocytes Absolute 0.04 #; Lymphocytes # 1.1 10*3/uL (1.4-4.0); Lymphocytes % 12.3 % (21.3-54.2); Mean Corpuscular HGB Conc 32.6 GM/DL (32-36); Mean Corpuscular Hemoglobin 32 PG (27-34); Mean Corpuscular Volume 97.2 FL (87-102); Monocytes # 0.5 10*3/uL (0.11-0.8); Monocytes % 5.5 % (1.7-12.7); Neutrophils # 7.3 10*3/uL (1.4-7.4); Neutrophils % 79.6 % (38.7-73.9); Platelet Count 179 T/CUMM (130-400); Red Blood Count 2.87 MC/CUMM (3.8-5.5); White Blood Count 9.2 T/CUMM (4-12)
[2017-09-10 02:40] LABS: Calcium 9.1 MG/DL (8.5-10.1); Osmolality,Calculated 308.7 MOS/KG (273-304); Potassium 5.5 MMOL/L (3.5-5.1)
[2017-09-10] MEDS: CALCIUM ACETATE 667 MG CAPSULE PO SCH ×3 (08:49→17:19)
[2017-09-10] MEDS: ENOXAPARIN 30 MG/0.3 ML SYRINGE SUBCUT SCH (08:49)
[2017-09-10] MEDS: LISINOPRIL 20 MG TABLET PO SCH (08:49)
[2017-09-10] MEDS: ASPIRIN EC 81 MG TABLET PO SCH (08:50)
[2017-09-10] MEDS: ISOSORBIDE MONONITRATE 30 MG TABLET PO SCH (08:50)
[2017-09-10] MEDS: PANTOPRAZOLE 40 MG TABLET PO SCH (08:50)
[2017-09-10] MEDS ORDERED: DEXTROSE 50% 25 GM/50 ML VIAL IV PRN (15:30)
[2017-09-10] MEDS ORDERED: GLUCAGON 1 MG VIAL IM PRN (15:30)
[2017-09-10] MEDS: INSULIN LISPRO 100 UNIT/ML SUBCUT SCH (17:20)
[2017-09-10] MEDS: CARVEDILOL 12.5 MG TABLET PO SCH (21:11)
[2017-09-10] MEDS: ACETAMINOPHEN 325 MG TABLET PO PRN (21:58)
[2017-09-11] MEDS: INSULIN LISPRO 100 UNIT/ML SUBCUT SCH ×4 (01:20→17:18)
[2017-09-11 04:46] LABS: Basophils # 0.1 10*3/uL (0.0-0.2); Basophils % 0.9 % (0.0-0.8); Eosinophils # 0.3 10*3/uL (0.0-0.87); Hemoglobin 9.1 GM/DL (12.0-16.0); Immature Granulocytes % 0.2 %; Immature Granulocytes Absolute 0.01 #; Lymphocytes # 1.1 10*3/uL (1.4-4.0); Lymphocytes % 16.9 % (21.3-54.2); Mean Corpuscular HGB Conc 32.5 GM/DL (32-36); Mean Corpuscular Hemoglobin 32 PG (27-34); Mean Corpuscular Volume 97.2 FL (87-102); Mean Platelet Volume 11.4 FL (9.6-12.0); Monocytes # 0.5 10*3/uL (0.11-0.8); Monocytes % 7.1 % (1.7-12.7); Neutrophils # 4.5 10*3/uL (1.4-7.4); Neutrophils % 69.9 % (38.7-73.9); Platelet Count 161 T/CUMM (130-400); Red Blood Count 2.88 MC/CUMM (3.8-5.5); White Blood Count 6.4 T/CUMM (4-12)
[2017-09-11 05:19] LABS: Calcium 9.6 MG/DL (8.5-10.1); Osmolality,Calculated 280.1 MOS/KG (273-304); Potassium 5.3 MMOL/L (3.5-5.1)
[2017-09-11] MEDS: CALCIUM ACETATE 667 MG CAPSULE PO SCH ×3 (08:04→17:16)
[2017-09-11] MEDS: LISINOPRIL 20 MG TABLET PO SCH (08:05)
[2017-09-11] MEDS: PANTOPRAZOLE 40 MG TABLET PO SCH (08:05)
[2017-09-11] MEDS: ISOSORBIDE MONONITRATE 30 MG TABLET PO SCH (08:05)
[2017-09-11] MEDS: ASPIRIN EC 81 MG TABLET PO SCH (08:05)
[2017-09-11] MEDS: CARVEDILOL 12.5 MG TABLET PO SCH ×2 (08:05→20:49)
[2017-09-11] MEDS: ENOXAPARIN 30 MG/0.3 ML SYRINGE SUBCUT SCH (08:07)
[2017-09-11] MEDS ORDERED: diphenhydrAMINE CAP 25 MG CAPSULE PO ONE (11:29)
[2017-09-11] MEDS ORDERED: DIAZEPAM 5 MG TABLET PO ONE (11:29)
[2017-09-11] MEDS: NITROGLYCERIN SL 0.4 MG TABLET SL PRN (14:02)
[2017-09-12] MEDS: INSULIN LISPRO 100 UNIT/ML SUBCUT SCH ×4 (01:23→17:37)
[2017-09-12] MEDS: NITROGLYCERIN SL 0.4 MG TABLET SL PRN (04:26)
[2017-09-12 05:24] LABS: Basophils # 0.1 10*3/uL (0.0-0.2); Basophils % 0.7 % (0.0-0.8); Eosinophils # 0.4 10*3/uL (0.0-0.87); Eosinophils % 3.7 % (0.00-10.9); Hematocrit 30.4 VOL% (35.7-47.0); Hemoglobin 10.1 GM/DL (12.0-16.0); Immature Granulocytes % 0.3 %; Immature Granulocytes Absolute 0.03 #; Lymphocytes # 1.1 10*3/uL (1.4-4.0); Lymphocytes % 10.5 % (21.3-54.2); Mean Corpuscular HGB Conc 33.2 GM/DL (32-36); Mean Corpuscular Hemoglobin 32 PG (27-34); Mean Corpuscular Volume 95.9 FL (87-102); Mean Platelet Volume 11.1 FL (9.6-12.0); Monocytes # 0.8 10*3/uL (0.11-0.8); Monocytes % 7.7 % (1.7-12.7); Neutrophils # 7.7 10*3/uL (1.4-7.4); Neutrophils % 77.1 % (38.7-73.9); Platelet Count 198 T/CUMM (130-400); Red Blood Count 3.17 MC/CUMM (3.8-5.5); Red Cell Distribution Width 13.7 % (9.3-17.3)
[2017-09-12 05:56] LABS: Calcium 9.4 MG/DL (8.5-10.1); Osmolality,Calculated 289.4 MOS/KG (273-304)
[2017-09-12 05:58] LABS: Potassium 6.1 MMOL/L (3.5-5.1)
[2017-09-12] MEDS ORDERED: SODIUM POLYSTYRENE SULFATE 15 GM/60 ML BOTTLE RECTAL ONE (06:02)
[2017-09-12] MEDS ORDERED: diphenhydrAMINE CAP 50 MG CAPSULE PO ONE (08:13)
[2017-09-12] MEDS ORDERED: DIAZEPAM 5 MG TABLET PO ONE (08:14)
[2017-09-12] MEDS: CARVEDILOL 12.5 MG TABLET PO SCH (08:24)
[2017-09-12] MEDS: ASPIRIN EC 81 MG TABLET PO SCH (08:24)
[2017-09-12] MEDS: LISINOPRIL 20 MG TABLET PO SCH (08:24)
[2017-09-12] MEDS ORDERED: LIDOCAINE 1% 20 ML VIAL ONE (08:40)
[2017-09-12] MEDS ORDERED: fentaNYL 100 MCG/2 ML VIAL ONE (08:41)
[2017-09-12] MEDS ORDERED: MIDAZOLAM 2 MG/2 ML VIAL ONE (08:41)
[2017-09-12] MEDS: CALCIUM ACETATE 667 MG CAPSULE PO SCH ×3 (08:51→17:41)
[2017-09-12] MEDS ORDERED: ENOXAPARIN 30 MG/0.3 ML SYRINGE ONE (09:23)
[2017-09-12] MEDS ORDERED: TIROFIBAN 5,000 MCG/100 ML PREMIX IV ONE ×2 (09:25→09:26)
[2017-09-12] MEDS ORDERED: TIROFIBAN 5,000 MCG/100 ML PREMIX IV SCH (09:33)
[2017-09-12] MEDS ORDERED: TICAGRELOR 90 MG TABLET ONE (09:36)
[2017-09-12] MEDS: ENOXAPARIN 30 MG/0.3 ML SYRINGE SUBCUT SCH (13:03)
[2017-09-12] MEDS ORDERED: GLUCAGON 1 MG VIAL IM PRN (13:06)
[2017-09-12] MEDS ORDERED: DEXTROSE 50% 25 GM/50 ML VIAL IV PRN (13:06)
[2017-09-12 17:38] LABS: Osmolality,Calculated 286.8 MOS/KG (273-304)
[2017-09-12] MEDS: PANTOPRAZOLE 40 MG TABLET PO SCH (17:41)
[2017-09-12] MEDS: ISOSORBIDE MONONITRATE 30 MG TABLET PO SCH (17:41)
[2017-09-12] MEDS: ACETAMINOPHEN 325 MG TABLET PO PRN (17:42)
[2017-09-12 17:47] LABS: Potassium 6.8 MMOL/L (3.5-5.1)
[2017-09-12] MEDS ORDERED: SODIUM POLYSTYRENE SULFATE 15 GM/60 ML BOTTLE PO ONE (19:21)
[2017-09-12] MEDS ORDERED: ALUM/MAG/SIMETH/LIDO VISC 1:1 30 ML BOTTLE PO ONE (20:42)
[2017-09-12] MEDS: TICAGRELOR 90 MG TABLET PO SCH (20:52)
[2017-09-12] MEDS: CARVEDILOL 25 MG TABLET PO SCH (20:52)
[2017-09-13] MEDS ORDERED: SODIUM POLYSTYRENE SULFATE 15 GM/60 ML BOTTLE PO ONE (00:01)
[2017-09-13] MEDS: INSULIN LISPRO 100 UNIT/ML SUBCUT SCH ×4 (00:25→17:31)
[2017-09-13 04:44] LABS: Blood Urea Nitrogen 97 MG/DL (7-18); Calcium 9.4 MG/DL (8.5-10.1); Glucose 91 MG/DL (74-106); Osmolality,Calculated 295.4 MOS/KG (273-304); Sodium 133 MMOL/L (136-145)
[2017-09-13 04:50] LABS: Troponin I Only 0.743 NG/ML (0.00-0.045)
[2017-09-13 04:52] LABS: Potassium 7.3 MMOL/L (3.5-5.1)
[2017-09-13 05:42] LABS: Basophils # 0.1 10*3/uL (0.0-0.2); Basophils % 0.7 % (0.0-0.8); Eosinophils # 0.2 10*3/uL (0.0-0.87); Eosinophils % 3.4 % (0.00-10.9); Hemoglobin 9.4 GM/DL (12.0-16.0); Immature Granulocytes % 0.4 %; Immature Granulocytes Absolute 0.03 #; Lymphocytes # 0.7 10*3/uL (1.4-4.0); Lymphocytes % 9.7 % (21.3-54.2); Mean Corpuscular HGB Conc 33.6 GM/DL (32-36); Mean Corpuscular Hemoglobin 32 PG (27-34); Mean Corpuscular Volume 95.2 FL (87-102); Monocytes # 0.6 10*3/uL (0.11-0.8); Monocytes % 8.7 % (1.7-12.7); Neutrophils # 5.2 10*3/uL (1.4-7.4); Neutrophils % 77.1 % (38.7-73.9); Platelet Count 188 T/CUMM (130-400); Red Blood Count 2.94 MC/CUMM (3.8-5.5); Red Cell Distribution Width 13.9 % (9.3-17.3); White Blood Count 6.8 T/CUMM (4-12)
[2017-09-13] MEDS: LISINOPRIL 20 MG TABLET PO SCH (09:00)
[2017-09-13] MEDS: PANTOPRAZOLE 40 MG TABLET PO SCH (09:45)
[2017-09-13] MEDS: TICAGRELOR 90 MG TABLET PO SCH ×2 (09:45→21:28)
[2017-09-13] MEDS: CALCIUM ACETATE 667 MG CAPSULE PO SCH ×3 (09:45→18:09)
[2017-09-13] MEDS: ASPIRIN EC 81 MG TABLET PO SCH (09:46)
[2017-09-13] MEDS: ISOSORBIDE MONONITRATE 30 MG TABLET PO SCH (09:46)
[2017-09-13] MEDS: CARVEDILOL 25 MG TABLET PO SCH ×2 (09:46→21:28)
[2017-09-13 13:51] LABS: Alanine Aminotransferase 25 U/L (13-56); Albumin 3.3 G/DL (3.4-5.0); Alkaline Phosphatase 229 U/L (45-117); Aspartate Amino Transferase 27 U/L (0-37); Bilirubin,Direct < 0.100 MG/DL (0.0-0.20); Bilirubin,Indirect 0.4 MG/DL (0.0-1.0); Total Protein 7.7 G/DL (6.4-8.3)
[2017-09-13] MEDS ORDERED: TUBERCULIN SKIN TEST 0.1 ML SYRINGE INTRADERM ONE (18:00)
[2017-09-13] MEDS ORDERED: ATORVASTATIN 40 MG TABLET PO SCH (21:00)
[2017-09-14] MEDS: INSULIN LISPRO 100 UNIT/ML SUBCUT SCH ×3 (01:47→12:07)
[2017-09-14] MEDS: ACETAMINOPHEN 325 MG TABLET PO PRN (02:43)
[2017-09-14 04:26] LABS: Basophils # 0.1 10*3/uL (0.0-0.2); Basophils % 0.9 % (0.0-0.8); Eosinophils # 0.3 10*3/uL (0.0-0.87); Eosinophils % 4.2 % (0.00-10.9); Hematocrit 26.3 VOL% (35.7-47.0); Hemoglobin 8.8 GM/DL (12.0-16.0); Immature Granulocytes % 0.3 %; Immature Granulocytes Absolute 0.02 #; Lymphocytes # 0.9 10*3/uL (1.4-4.0); Mean Corpuscular HGB Conc 33.5 GM/DL (32-36); Mean Corpuscular Hemoglobin 32 PG (27-34); Monocytes # 0.6 10*3/uL (0.11-0.8); Monocytes % 8.3 % (1.7-12.7); Neutrophils # 4.9 10*3/uL (1.4-7.4); Neutrophils % 73.3 % (38.7-73.9); Platelet Count 195 T/CUMM (130-400); Red Blood Count 2.74 MC/CUMM (3.8-5.5); Red Cell Distribution Width 13.9 % (9.3-17.3); White Blood Count 6.6 T/CUMM (4-12)
[2017-09-14 04:39] LABS: Calcium 9.5 MG/DL (8.5-10.1); Magnesium 2.3 MG/DL (1.8-2.4); Potassium 4.2 MMOL/L (3.5-5.1)
[2017-09-14 04:43] LABS: Risk Ratio 3.16; VLDL CHOLESTEROL 24.2 MG/DL
[2017-09-14] MEDS: CALCIUM ACETATE 667 MG CAPSULE PO SCH ×2 (08:25→12:06)
[2017-09-14] MEDS: TICAGRELOR 90 MG TABLET PO SCH (08:26)
[2017-09-14] MEDS: CARVEDILOL 25 MG TABLET PO SCH (08:26)
[2017-09-14] MEDS: ASPIRIN EC 81 MG TABLET PO SCH (08:26)
[2017-09-14] MEDS: PANTOPRAZOLE 40 MG TABLET PO SCH (08:26)
[2017-09-14] MEDS: ISOSORBIDE MONONITRATE 30 MG TABLET PO SCH (08:26)
[2017-09-14 12:45] VITALS: BP 116/52
== END 2017-09-14 13:10 | disposition swing bed (61) | DRG 250 ==
LOC: N.ED 21:38 → N.EDINP 23:35 → N.TELEN 09-10 00:02
PROVIDERS: ADMIT Internal Medicine; ATTEND Internal Medicine
PROC: CLCCHCL (ICD-10-PCS; 2017-09-12 09:15)

== ENCOUNTER 2017-12-11 19:50 | Inpatient (IN) ==
[2017-12-12] MEDS ORDERED: GLUCAGON 1 MG VIAL IM PRN ×2 (00:40→12:25)
[2017-12-12] MEDS ORDERED: DEXTROSE 50% 25 GM/50 ML VIAL IV PRN ×2 (00:40→12:25)
[2017-12-12 05:58] LABS: Basophils # 0.1 10*3/uL (0.0-0.2); Eosinophils # 0.2 10*3/uL (0.0-0.87); Eosinophils % 3.3 % (0.00-10.9); Hematocrit 32.2 VOL% (35.7-47.0); Hemoglobin 10.5 GM/DL (12.0-16.0); Immature Granulocytes % 0.6 %; Immature Granulocytes Absolute 0.04 #; Lymphocytes # 1.1 10*3/uL (1.4-4.0); Mean Corpuscular HGB Conc 32.6 GM/DL (32-36); Mean Corpuscular Hemoglobin 31 PG (27-34); Mean Corpuscular Volume 95.5 FL (87-102); Mean Platelet Volume 10.5 FL (9.6-12.0); Monocytes # 0.5 10*3/uL (0.11-0.8); Monocytes % 7.4 % (1.7-12.7); Neutrophils % 71.7 % (38.7-73.9); Platelet Count 262 T/CUMM (130-400); Red Blood Count 3.37 MC/CUMM (3.8-5.5); Red Cell Distribution Width 15.6 % (9.3-17.3)
[2017-12-12 06:27] LABS: Bilirubin,Total 0.8 MG/DL (0.2-1.0); Calcium 9.3 MG/DL (8.5-10.1); Osmolality,Calculated 286.7 MOS/KG (273-304); Potassium 5.3 MMOL/L (3.5-5.1); Total Protein 7.6 G/DL (6.4-8.3)
[2017-12-12] MEDS: INSULIN LISPRO 100 UNIT/ML SUBCUT SCH ×3 (06:51→17:46)
[2017-12-12] MEDS: MORPHINE 2 MG/1 ML SYRINGE IV PRN ×2 (09:47→16:03)
[2017-12-12 09:54] LABS: Total Protein 7.4 G/DL (6.4-8.3)
[2017-12-12] MEDS: CARVEDILOL 25 MG TABLET PO SCH (21:46)
[2017-12-12] MEDS: ATORVASTATIN 40 MG TABLET PO SCH (21:46)
[2017-12-13] MEDS: INSULIN LISPRO 100 UNIT/ML SUBCUT SCH ×4 (00:50→17:33)
[2017-12-13 06:38] LABS: Basophils # 0.1 10*3/uL (0.0-0.2); Basophils % 0.9 % (0.0-0.8); Eosinophils # 0.4 10*3/uL (0.0-0.87); Eosinophils % 3.6 % (0.00-10.9); Hemoglobin 10.4 GM/DL (12.0-16.0); Immature Granulocytes % 0.5 %; Immature Granulocytes Absolute 0.05 #; Lymphocytes % 9.6 % (21.3-54.2); Mean Corpuscular HGB Conc 31.5 GM/DL (32-36); Mean Corpuscular Hemoglobin 31 PG (27-34); Mean Corpuscular Volume 98.8 FL (87-102); Mean Platelet Volume 10.3 FL (9.6-12.0); Monocytes # 0.5 10*3/uL (0.11-0.8); Monocytes % 5.2 % (1.7-12.7); NRBC # 0.02 10*3/uL; Neutrophils # 8.3 10*3/uL (1.4-7.4); Neutrophils % 80.2 % (38.7-73.9); Platelet Count 255 T/CUMM (130-400); Red Blood Count 3.34 MC/CUMM (3.8-5.5); Red Cell Distribution Width 15.6 % (9.3-17.3); White Blood Count 10.3 T/CUMM (4-12)
[2017-12-13 07:06] LABS: Calcium 9.4 MG/DL (8.5-10.1); Osmolality,Calculated 291.8 MOS/KG (273-304); Potassium 5.6 MMOL/L (3.5-5.1)
[2017-12-13] MEDS ORDERED: fentaNYL 100 MCG/2 ML VIAL IV ONE (09:08)
[2017-12-13] MEDS ORDERED: MIDAZOLAM 2 MG/2 ML VIAL IV ONE (09:08)
[2017-12-13 09:26] LABS: Total Protein (Chem) 7.4 G/DL (6.4-8.3)
[2017-12-13] MEDS ORDERED: DIAZEPAM 5 MG TABLET PO ONE (11:55)
[2017-12-13 12:16] LABS: Immuno Free Light Chain Kappa 52.09 MG/DL (0.33-1.94); Immuno Free Light Chain Lambda 27.66 MG/DL (0.57-2.63); Immuno Free Light Chain Ratio 1.88 MG/DL (0.26-1.65)
[2017-12-13] MEDS ORDERED: MIDAZOLAM 2 MG/2 ML VIAL ONE (13:16)
[2017-12-13] MEDS ORDERED: fentaNYL 100 MCG/2 ML VIAL ONE (13:16)
[2017-12-13] MEDS: CARVEDILOL 25 MG TABLET PO SCH ×2 (14:27→17:32)
[2017-12-13] MEDS: CALCIUM ACETATE 667 MG CAPSULE PO SCH ×3 (14:27→21:16)
[2017-12-13] MEDS: ISOSORBIDE MONONITRATE 30 MG TABLET PO SCH (14:27)
[2017-12-13] MEDS: ATORVASTATIN 40 MG TABLET PO SCH (21:26)
[2017-12-13] MEDS ORDERED: ALBUTEROL/IPRATROPIUM 3 ML NEB RESP TX PRN (22:30)
[2017-12-14] MEDS: INSULIN LISPRO 100 UNIT/ML SUBCUT SCH ×4 (01:12→17:18)
[2017-12-14] MEDS: ONDANSETRON 4 MG/2 ML VIAL IV PRN ×2 (06:41→16:21)
[2017-12-14 07:51] LABS: Basophils # 0.1 10*3/uL (0.0-0.2); Basophils % 0.7 % (0.0-0.8); Eosinophils # 0.4 10*3/uL (0.0-0.87); Eosinophils % 3.6 % (0.00-10.9); Hematocrit 34.3 VOL% (35.7-47.0); Hemoglobin 10.7 GM/DL (12.0-16.0); Immature Granulocytes % 0.5 %; Immature Granulocytes Absolute 0.05 #; Lymphocytes # 0.9 10*3/uL (1.4-4.0); Lymphocytes % 8.6 % (21.3-54.2); Mean Corpuscular HGB Conc 31.2 GM/DL (32-36); Mean Corpuscular Hemoglobin 31 PG (27-34); Mean Corpuscular Volume 98.8 FL (87-102); Mean Platelet Volume 10.3 FL (9.6-12.0); Monocytes # 0.6 10*3/uL (0.11-0.8); Monocytes % 5.4 % (1.7-12.7); Neutrophils # 8.2 10*3/uL (1.4-7.4); Neutrophils % 81.2 % (38.7-73.9); Platelet Count 280 T/CUMM (130-400); Red Blood Count 3.47 MC/CUMM (3.8-5.5); Red Cell Distribution Width 15.9 % (9.3-17.3); White Blood Count 10.1 T/CUMM (4-12)
[2017-12-14 08:06] LABS: Calcium 9.4 MG/DL (8.5-10.1); Osmolality,Calculated 278.8 MOS/KG (273-304); Potassium 4.5 MMOL/L (3.5-5.1)
[2017-12-14] MEDS: CARVEDILOL 25 MG TABLET PO SCH ×2 (08:15→16:17)
[2017-12-14] MEDS: POLYETHYLENE GLYCOL POWDER 17 GM PACK PO PRN (08:15)
[2017-12-14] MEDS: CALCIUM ACETATE 667 MG CAPSULE PO SCH ×3 (08:15→16:17)
[2017-12-14] MEDS: ISOSORBIDE MONONITRATE 30 MG TABLET PO SCH (08:15)
[2017-12-14 10:19] LABS: Albumin (SPE) 3.6 G/DL (3.2-5.3); Albumin (SPE) Rel % 48.5 %; Alpha 1 (SPE) 0.2 G/DL (0.1-0.4); Alpha 1 (SPE) Rel % 2.8 %; Alpha 2 (SPE) 0.8 G/DL (0.4-1.0); Beta (SPE) 0.6 G/DL (0.5-1.1); Beta (SPE) Rel % 8.5 %; Gamma (SPE) 2.2 G/DL (0.7-1.7); Gamma (SPE) Rel % 30.2 %
[2017-12-14] MEDS: ATORVASTATIN 40 MG TABLET PO SCH (21:24)
[2017-12-15] MEDS: INSULIN LISPRO 100 UNIT/ML SUBCUT SCH ×4 (00:35→17:54)
[2017-12-15 05:35] LABS: Basophils # 0.1 10*3/uL (0.0-0.2); Basophils % 0.7 % (0.0-0.8); Eosinophils # 0.4 10*3/uL (0.0-0.87); Hematocrit 30.9 VOL% (35.7-47.0); Hemoglobin 10.1 GM/DL (12.0-16.0); Immature Granulocytes % 0.5 %; Immature Granulocytes Absolute 0.04 #; Lymphocytes # 1.1 10*3/uL (1.4-4.0); Lymphocytes % 12.6 % (21.3-54.2); Mean Corpuscular HGB Conc 32.7 GM/DL (32-36); Mean Corpuscular Hemoglobin 32 PG (27-34); Mean Corpuscular Volume 96.9 FL (87-102); Mean Platelet Volume 10.1 FL (9.6-12.0); Monocytes # 0.6 10*3/uL (0.11-0.8); Monocytes % 6.7 % (1.7-12.7); Neutrophils # 6.7 10*3/uL (1.4-7.4); Neutrophils % 75.5 % (38.7-73.9); Platelet Count 285 T/CUMM (130-400); Red Blood Count 3.19 MC/CUMM (3.8-5.5); Red Cell Distribution Width 15.6 % (9.3-17.3); White Blood Count 8.8 T/CUMM (4-12)
[2017-12-15 06:07] LABS: Calcium 9.4 MG/DL (8.5-10.1); Osmolality,Calculated 287.7 MOS/KG (273-304); Potassium 4.8 MMOL/L (3.5-5.1)
[2017-12-15] MEDS: POLYETHYLENE GLYCOL POWDER 17 GM PACK PO PRN (08:03)
[2017-12-15] MEDS: CARVEDILOL 25 MG TABLET PO SCH ×2 (08:04→16:35)
[2017-12-15] MEDS: ONDANSETRON 4 MG/2 ML VIAL IV PRN ×2 (08:04→19:16)
[2017-12-15] MEDS: CALCIUM ACETATE 667 MG CAPSULE PO SCH ×3 (08:04→16:35)
[2017-12-15] MEDS: ISOSORBIDE MONONITRATE 30 MG TABLET PO SCH (08:04)
[2017-12-15] MEDS ORDERED: BISACODYL 10 MG SUPP RECTAL ONE (19:05)
[2017-12-15] MEDS: ATORVASTATIN 40 MG TABLET PO SCH (21:32)
[2017-12-16] MEDS: INSULIN LISPRO 100 UNIT/ML SUBCUT SCH ×4 (00:34→17:23)
[2017-12-16 08:11] LABS: Basophils # 0.1 10*3/uL (0.0-0.2); Basophils % 0.9 % (0.0-0.8); Eosinophils # 0.3 10*3/uL (0.0-0.87); Eosinophils % 4.4 % (0.00-10.9); Hematocrit 33.8 VOL% (35.7-47.0); Hemoglobin 11.1 GM/DL (12.0-16.0); Immature Granulocytes % 0.4 %; Immature Granulocytes Absolute 0.03 #; Lymphocytes # 0.9 10*3/uL (1.4-4.0); Lymphocytes % 11.6 % (21.3-54.2); Mean Corpuscular HGB Conc 32.8 GM/DL (32-36); Mean Corpuscular Hemoglobin 32 PG (27-34); Mean Corpuscular Volume 96.6 FL (87-102); Mean Platelet Volume 9.9 FL (9.6-12.0); Monocytes # 0.5 10*3/uL (0.11-0.8); Monocytes % 6.3 % (1.7-12.7); Neutrophils # 5.9 10*3/uL (1.4-7.4); Neutrophils % 76.4 % (38.7-73.9); Platelet Count 286 T/CUMM (130-400); Red Cell Distribution Width 15.6 % (9.3-17.3); White Blood Count 7.7 T/CUMM (4-12)
[2017-12-16] MEDS: CARVEDILOL 25 MG TABLET PO SCH ×2 (08:43→17:12)
[2017-12-16] MEDS: CALCIUM ACETATE 667 MG CAPSULE PO SCH ×3 (08:43→17:12)
[2017-12-16] MEDS: DOCUSATE SODIUM 100 MG CAPSULE PO SCH ×2 (08:43→20:34)
[2017-12-16] MEDS: ISOSORBIDE MONONITRATE 30 MG TABLET PO SCH (08:43)
[2017-12-16 08:45] LABS: Calcium 9.4 MG/DL (8.5-10.1); Osmolality,Calculated 281.5 MOS/KG (273-304); Potassium 4.6 MMOL/L (3.5-5.1)
[2017-12-16] MEDS: MORPHINE 2 MG/1 ML SYRINGE IV PRN (17:12)
[2017-12-16] MEDS: ONDANSETRON 4 MG/2 ML VIAL IV PRN (17:12)
[2017-12-16] MEDS: ATORVASTATIN 40 MG TABLET PO SCH (20:34)
[2017-12-17] MEDS: INSULIN LISPRO 100 UNIT/ML SUBCUT SCH ×4 (00:13→17:39)
[2017-12-17] MEDS: DOCUSATE SODIUM 100 MG CAPSULE PO SCH ×2 (08:42→22:13)
[2017-12-17] MEDS: ISOSORBIDE MONONITRATE 30 MG TABLET PO SCH (08:42)
[2017-12-17] MEDS: CALCIUM ACETATE 667 MG CAPSULE PO SCH ×3 (08:42→16:56)
[2017-12-17] MEDS: CARVEDILOL 25 MG TABLET PO SCH ×2 (08:42→16:56)
[2017-12-17] MEDS: ATORVASTATIN 40 MG TABLET PO SCH (22:14)
[2017-12-18] MEDS: INSULIN LISPRO 100 UNIT/ML SUBCUT SCH ×4 (01:16→17:27)
[2017-12-18] MEDS: DOCUSATE SODIUM 100 MG CAPSULE PO SCH ×2 (08:19→21:22)
[2017-12-18] MEDS: ISOSORBIDE MONONITRATE 30 MG TABLET PO SCH (08:19)
[2017-12-18] MEDS: CALCIUM ACETATE 667 MG CAPSULE PO SCH ×3 (08:19→16:28)
[2017-12-18] MEDS: CARVEDILOL 25 MG TABLET PO SCH ×2 (08:19→16:29)
[2017-12-18] MEDS: ATORVASTATIN 40 MG TABLET PO SCH (21:21)
[2017-12-19] MEDS: POLYETHYLENE GLYCOL POWDER 17 GM PACK PO PRN (06:00)
[2017-12-19] MEDS: INSULIN LISPRO 100 UNIT/ML SUBCUT SCH ×4 (07:10→17:21)
[2017-12-19] MEDS: CALCIUM ACETATE 667 MG CAPSULE PO SCH ×3 (08:53→16:15)
[2017-12-19] MEDS: DOCUSATE SODIUM 100 MG CAPSULE PO SCH ×2 (08:53→22:40)
[2017-12-19] MEDS: ISOSORBIDE MONONITRATE 30 MG TABLET PO SCH (08:53)
[2017-12-19] MEDS: CARVEDILOL 25 MG TABLET PO SCH ×2 (08:53→16:15)
[2017-12-19] MEDS: ATORVASTATIN 40 MG TABLET PO SCH (22:40)
[2017-12-20] MEDS: INSULIN LISPRO 100 UNIT/ML SUBCUT SCH ×4 (00:05→20:38)
[2017-12-20] MEDS: CARVEDILOL 25 MG TABLET PO SCH ×2 (08:14→20:39)
[2017-12-20] MEDS: CALCIUM ACETATE 667 MG CAPSULE PO SCH ×3 (08:15→17:21)
[2017-12-20] MEDS: DOCUSATE SODIUM 100 MG CAPSULE PO SCH ×2 (08:15→22:46)
[2017-12-20] MEDS: ISOSORBIDE MONONITRATE 30 MG TABLET PO SCH (14:20)
[2017-12-20] MEDS: ATORVASTATIN 40 MG TABLET PO SCH (22:45)
[2017-12-21] MEDS: INSULIN LISPRO 100 UNIT/ML SUBCUT SCH ×3 (00:05→12:00)
[2017-12-21 01:59] LABS: Basophils # 0.1 10*3/uL (0.0-0.2); Basophils % 0.9 % (0.0-0.8); Eosinophils # 0.3 10*3/uL (0.0-0.87); Eosinophils % 4.1 % (0.00-10.9); Hematocrit 30.9 VOL% (35.7-47.0); Hemoglobin 10.1 GM/DL (12.0-16.0); Immature Granulocytes % 0.4 %; Immature Granulocytes Absolute 0.03 #; Lymphocytes # 0.6 10*3/uL (1.4-4.0); Lymphocytes % 9.5 % (21.3-54.2); Mean Corpuscular HGB Conc 32.7 GM/DL (32-36); Mean Corpuscular Hemoglobin 31 PG (27-34); Mean Corpuscular Volume 94.8 FL (87-102); Mean Platelet Volume 10.3 FL (9.6-12.0); Monocytes # 0.5 10*3/uL (0.11-0.8); Monocytes % 7.4 % (1.7-12.7); Neutrophils # 5.3 10*3/uL (1.4-7.4); Neutrophils % 77.7 % (38.7-73.9); Platelet Count 240 T/CUMM (130-400); Red Blood Count 3.26 MC/CUMM (3.8-5.5); Red Cell Distribution Width 15.1 % (9.3-17.3); White Blood Count 6.8 T/CUMM (4-12)
[2017-12-21] MEDS: DOCUSATE SODIUM 100 MG CAPSULE PO SCH (08:28)
[2017-12-21] MEDS: ISOSORBIDE MONONITRATE 30 MG TABLET PO SCH (08:28)
[2017-12-21] MEDS: CARVEDILOL 25 MG TABLET PO SCH (08:28)
[2017-12-21] MEDS: CALCIUM ACETATE 667 MG CAPSULE PO SCH ×2 (08:28→12:33)
[2017-12-21] MEDS: POLYETHYLENE GLYCOL POWDER 17 GM PACK PO PRN (08:29)
[2017-12-21 12:05] VITALS: BP 122/50
== END 2017-12-21 13:54 | DRG 477 ==
LOC: N.5E → SUATTDRO 22:11
PROVIDERS: ADMIT Internal Medicine; ATTEND Internal Medicine Cardiovascular Disease

== ENCOUNTER 2018-05-01 22:33 | Inpatient (IN) ==
[2018-05-01 23:23] LABS: Basophils # 0.1 10*3/uL (0.0-0.2); Basophils % 0.7 % (0.0-0.8); Eosinophils # 0.2 10*3/uL (0.0-0.87); Eosinophils % 2.5 % (0.00-10.9); Hematocrit 35.5 VOL% (35.7-47.0); Hemoglobin 11.3 GM/DL (12.0-16.0); Immature Granulocytes % 0.4 %; Immature Granulocytes Absolute 0.04 #; Lymphocytes # 0.9 10*3/uL (1.4-4.0); Lymphocytes % 8.8 % (21.3-54.2); Mean Corpuscular HGB Conc 31.8 GM/DL (32-36); Mean Corpuscular Hemoglobin 32 PG (27-34); Mean Corpuscular Volume 100.3 FL (87-102); Mean Platelet Volume 10.7 FL (9.6-12.0); Monocytes # 0.4 10*3/uL (0.11-0.8); Monocytes % 4.4 % (1.7-12.7); Neutrophils % 83.2 % (38.7-73.9); Platelet Count 217 T/CUMM (130-400); Red Blood Count 3.54 MC/CUMM (3.8-5.5); Red Cell Distribution Width 15.1 % (9.3-17.3); White Blood Count 9.6 T/CUMM (4-12)
[2018-05-01 23:30] LABS: VBG Base Excess -1.1 MEQ/L (0-4); VBG HCO3 23.5 MEQ/L (24-28); VBG Oxygen Saturation 99.4 %; VBG PCO2 46.4 MMHG (41-51); VBG PH 7.34
[2018-05-01] MEDS ORDERED: hydrALAZINE 20 MG/1 ML VIAL IV STA (23:34)
[2018-05-01 23:50] LABS: Alanine Aminotransferase 17 U/L (13-56); Albumin 3.5 G/DL (3.4-5.0); Alkaline Phosphatase 163 U/L (45-117); Aspartate Amino Transferase 16 U/L (0-37); Bilirubin,Total < 0.39 MG/DL (0.2-1.0); Blood Urea Nitrogen 60 MG/DL (7-18); Calcium 9.3 MG/DL (8.5-10.1); Glucose 253 MG/DL (74-106); Osmolality,Calculated 304.4 MOS/KG (273-304); Potassium 4.7 MMOL/L (3.5-5.1); Sodium 140 MMOL/L (136-145); Total Protein 8.6 G/DL (6.4-8.3)
[2018-05-02] MEDS ORDERED: ONDANSETRON 4 MG/2 ML VIAL IV PRN (02:07)
[2018-05-02] MEDS ORDERED: DEXTROSE 50% 25 GM/50 ML VIAL IV PRN ×2 (02:07)
[2018-05-02] MEDS ORDERED: ACETAMINOPHEN 325 MG TABLET PO PRN (02:07)
[2018-05-02] MEDS ORDERED: GLUCAGON 1 MG VIAL IM PRN ×2 (02:07)
[2018-05-02] MEDS ORDERED: ALBUTEROL 1.25 MG/3 ML NEB RESP TX PRN (04:11)
[2018-05-02] MEDS: NITROGLYCERIN SL 0.4 MG TABLET SL PRN ×2 (05:35→12:02)
[2018-05-02] MEDS ORDERED: ISOSORBIDE MONONITRATE 30 MG TABLET PO SCH (06:00)
[2018-05-02] MEDS: ALBUTEROL/IPRATROPIUM 3 ML NEB RESP TX SCH ×3 (06:10→19:55)
[2018-05-02] MEDS: LISINOPRIL 20 MG TABLET PO SCH (06:20)
[2018-05-02] MEDS: CARVEDILOL 25 MG TABLET PO SCH ×2 (06:20→18:16)
[2018-05-02] MEDS: INSULIN REGULAR 100 UNIT/ML SUBCUT SCH ×4 (08:28→20:37)
[2018-05-02] MEDS ORDERED: PNEUMOCOCCAL VACCINE (23 VALENT) 0.5 ML VIAL IM ONE (09:00)
[2018-05-02] MEDS: DOCUSATE SODIUM 100 MG CAPSULE PO SCH (09:03)
[2018-05-02] MEDS: BACLOFEN 10 MG TABLET PO SCH ×2 (09:03→20:32)
[2018-05-02] MEDS: ASPIRIN EC 81 MG TABLET PO SCH (09:03)
[2018-05-02] MEDS: SIMVASTATIN 40 MG TABLET PO SCH (09:03)
[2018-05-02] MEDS: CALCIUM ACETATE 667 MG CAPSULE PO SCH ×3 (09:03→18:16)
[2018-05-02] MEDS: PANTOPRAZOLE 40 MG TABLET PO SCH (09:03)
[2018-05-02] MEDS: CLOPIDOGREL 75 MG TABLET PO SCH (09:03)
[2018-05-02] MEDS: hydrALAZINE 25 MG TABLET PO SCH ×2 (15:14→20:32)
[2018-05-02] MEDS: MULTIVITAMIN (BEROCCA) TABLET PO SCH (20:32)
[2018-05-03] MEDS: ALBUTEROL/IPRATROPIUM 3 ML NEB RESP TX SCH ×4 (01:00→19:04)
[2018-05-03 06:18] LABS: Basophils # 0.1 10*3/uL (0.0-0.2); Basophils % 1.4 % (0.0-0.8); Eosinophils # 0.2 10*3/uL (0.0-0.87); Hematocrit 31.4 VOL% (35.7-47.0); Hemoglobin 10.1 GM/DL (12.0-16.0); Immature Granulocytes % 0.4 %; Immature Granulocytes Absolute 0.02 #; Lymphocytes % 16.7 % (21.3-54.2); Mean Corpuscular HGB Conc 32.2 GM/DL (32-36); Mean Corpuscular Hemoglobin 32 PG (27-34); Mean Corpuscular Volume 99.1 FL (87-102); Monocytes # 0.4 10*3/uL (0.11-0.8); Neutrophils % 70.5 % (38.7-73.9); Platelet Count 211 T/CUMM (130-400); Red Blood Count 3.17 MC/CUMM (3.8-5.5); Red Cell Distribution Width 14.7 % (9.3-17.3); White Blood Count 5.7 T/CUMM (4-12)
[2018-05-03 06:43] LABS: Albumin 3.1 G/DL (3.4-5.0); Bilirubin,Total 0.6 MG/DL (0.2-1.0); Calcium 9.8 MG/DL (8.5-10.1); Potassium 4.2 MMOL/L (3.5-5.1); Total Protein 7.7 G/DL (6.4-8.3)
[2018-05-03] MEDS: INSULIN REGULAR 100 UNIT/ML SUBCUT SCH ×4 (08:21→21:44)
[2018-05-03] MEDS: hydrALAZINE 25 MG TABLET PO SCH ×3 (10:20→21:43)
[2018-05-03] MEDS: CARVEDILOL 25 MG TABLET PO SCH ×2 (10:20→16:32)
[2018-05-03] MEDS: PANTOPRAZOLE 40 MG TABLET PO SCH (10:20)
[2018-05-03] MEDS: CLOPIDOGREL 75 MG TABLET PO SCH (10:20)
[2018-05-03] MEDS: ISOSORBIDE MONONITRATE 60 MG TABLET PO SCH (10:20)
[2018-05-03] MEDS: DOCUSATE SODIUM 100 MG CAPSULE PO SCH (10:20)
[2018-05-03] MEDS: ASPIRIN EC 81 MG TABLET PO SCH (10:20)
[2018-05-03] MEDS: LISINOPRIL 20 MG TABLET PO SCH (10:20)
[2018-05-03] MEDS: SIMVASTATIN 40 MG TABLET PO SCH (10:21)
[2018-05-03] MEDS: BACLOFEN 10 MG TABLET PO SCH ×2 (10:21→21:43)
[2018-05-03] MEDS: CALCIUM ACETATE 667 MG CAPSULE PO SCH ×3 (11:02→16:32)
[2018-05-03] MEDS ORDERED: FLUTICASONE 50 MCG NASAL SPRAY 16 GM BOTTLE BOTH NARES PRN (11:39)
[2018-05-03] MEDS ORDERED: DOCUSATE/SENNA 50-8.6 MG TABLET PO PRN (11:39)
[2018-05-03] MEDS ORDERED: CALCIUM ACETATE 667 MG CAPSULE PO SCH (12:00)
[2018-05-03] MEDS ORDERED: METOCLOPRAMIDE 10 MG/2 ML VIAL IV SCH (12:00)
[2018-05-03] MEDS: ONDANSETRON ODT 4 MG TABLET PO PRN ×2 (14:46→21:43)
[2018-05-03] MEDS: MULTIVITAMIN (BEROCCA) TABLET PO SCH (21:43)
[2018-05-04] MEDS: ALBUTEROL/IPRATROPIUM 3 ML NEB RESP TX SCH ×4 (01:10→19:40)
[2018-05-04 07:33] LABS: Basophils # 0.1 10*3/uL (0.0-0.2); Basophils % 0.9 % (0.0-0.8); Eosinophils # 0.1 10*3/uL (0.0-0.87); Eosinophils % 2.1 % (0.00-10.9); Hematocrit 32.9 VOL% (35.7-47.0); Hemoglobin 10.8 GM/DL (12.0-16.0); Immature Granulocytes % 0.4 %; Immature Granulocytes Absolute 0.03 #; Lymphocytes # 0.7 10*3/uL (1.4-4.0); Lymphocytes % 10.8 % (21.3-54.2); Mean Corpuscular HGB Conc 32.8 GM/DL (32-36); Mean Corpuscular Hemoglobin 32 PG (27-34); Mean Corpuscular Volume 96.5 FL (87-102); Mean Platelet Volume 11.1 FL (9.6-12.0); Monocytes # 0.4 10*3/uL (0.11-0.8); Monocytes % 5.8 % (1.7-12.7); Neutrophils # 5.4 10*3/uL (1.4-7.4); Platelet Count 220 T/CUMM (130-400); Red Blood Count 3.41 MC/CUMM (3.8-5.5); Red Cell Distribution Width 14.6 % (9.3-17.3); White Blood Count 6.7 T/CUMM (4-12)
[2018-05-04] MEDS: CARVEDILOL 25 MG TABLET PO SCH ×3 (07:43→16:38)
[2018-05-04] MEDS: BACLOFEN 10 MG TABLET PO SCH ×3 (07:43→22:05)
[2018-05-04] MEDS: hydrALAZINE 25 MG TABLET PO SCH (07:43)
[2018-05-04] MEDS: ISOSORBIDE MONONITRATE 60 MG TABLET PO SCH ×2 (07:43→12:13)
[2018-05-04] MEDS: CLOPIDOGREL 75 MG TABLET PO SCH ×2 (07:43→12:13)
[2018-05-04] MEDS: ASPIRIN EC 81 MG TABLET PO SCH ×2 (07:43→12:12)
[2018-05-04] MEDS: PANTOPRAZOLE 40 MG TABLET PO SCH ×2 (07:44→12:13)
[2018-05-04] MEDS: SIMVASTATIN 40 MG TABLET PO SCH ×2 (07:44→12:14)
[2018-05-04] MEDS: LISINOPRIL 20 MG TABLET PO SCH ×2 (07:46→12:13)
[2018-05-04 08:07] LABS: Calcium 9.4 MG/DL (8.5-10.1)
[2018-05-04 08:08] LABS: Osmolality,Calculated 284.1 MOS/KG (273-304)
[2018-05-04 08:20] LABS: Risk Ratio 4.14; VLDL CHOLESTEROL 35.8 MG/DL
[2018-05-04] MEDS: hydrALAZINE 20 MG/1 ML VIAL IV PRN ×2 (08:34→23:44)
[2018-05-04] MEDS: INSULIN REGULAR 100 UNIT/ML SUBCUT SCH ×4 (08:37→22:05)
[2018-05-04] MEDS ORDERED: MORPHINE 4 MG/1 ML VIAL IV PRN (08:48)
[2018-05-04] MEDS ORDERED: MORPHINE 4 MG/1 ML VIAL IV ONE (08:48)
[2018-05-04] MEDS ORDERED: NITROGLYCERIN SL 0.4 MG TABLET SL PRN (08:48)
[2018-05-04 08:57] LABS: ABG Base Excess 1.4 MMOL/L (-2.5-2.5); ABG HCO3 25.8 MMOL/L (20-26); ABG Oxygen Saturation 98.5 % (95-100); ABG PCO2 40.1 MM HG (35-48); ABG PH 7.427 (7.35-7.45); ABG PO2 132.1 MM HG (80-95); ABG TCO2 27.1 MMOL/L (23-27)
[2018-05-04] MEDS: DOCUSATE SODIUM 100 MG CAPSULE PO SCH (12:12)
[2018-05-04] MEDS: CALCIUM ACETATE 667 MG CAPSULE PO SCH ×2 (12:12→16:38)
[2018-05-04] MEDS: CALCIUM CARBONATE CHEW 500 MG TABLET PO SCH (12:12)
[2018-05-04] MEDS: MULTIVITAMIN (BEROCCA) TABLET PO SCH (22:05)
[2018-05-04] MEDS ORDERED: ACETAMINOPHEN 650 MG SUPP RECTAL PRN (22:15)
[2018-05-04] MEDS ORDERED: ONDANSETRON 4 MG/2 ML VIAL IV PRN (22:16)
[2018-05-04] MEDS ORDERED: DEXTROSE 50% 25 GM/50 ML VIAL IV PRN (23:26)
[2018-05-04] MEDS ORDERED: GLUCAGON 1 MG VIAL IM PRN (23:26)
[2018-05-05 00:09] LABS: Calcium 9.6 MG/DL (8.5-10.1); Potassium 4.5 MMOL/L (3.5-5.1)
[2018-05-05 00:09] LABS: ABG Base Excess 1.1 MMOL/L (-2.5-2.5); ABG HCO3 26.1 MMOL/L (20-26); ABG Oxygen Saturation 98.4 % (95-100); ABG PCO2 42.8 MM HG (35-48); ABG PH 7.403 (7.35-7.45); ABG PO2 116.6 MM HG (80-95); ABG TCO2 27.4 MMOL/L (23-27); Allen Test Positive
[2018-05-05 00:13] LABS: Albumin 3.3 G/DL (3.4-5.0); Bilirubin,Total 0.4 MG/DL (0.2-1.0); Calcium 9.6 MG/DL (8.5-10.1)
[2018-05-05 00:14] LABS: Osmolality,Calculated 277.8 MOS/KG (273-304); Potassium 4.7 MMOL/L (3.5-5.1)
[2018-05-05] MEDS: ALBUTEROL/IPRATROPIUM 3 ML NEB RESP TX SCH ×4 (00:27→19:50)
[2018-05-05] MEDS ORDERED: LACTULOSE 20 GM/30 ML UDCUP PO SCH (02:00)
[2018-05-05] MEDS: SODIUM CHLORIDE 0.9% 1,000 ML IV SCH ×2 (02:12)
[2018-05-05] MEDS: INSULIN REGULAR 100 UNIT/ML SUBCUT SCH ×4 (07:03→20:34)
[2018-05-05] MEDS: LACTULOSE 20 GM/30 ML UDCUP PO SCH ×3 (07:54→20:34)
[2018-05-05] MEDS: ASPIRIN EC 81 MG TABLET PO SCH (09:22)
[2018-05-05] MEDS: CALCIUM ACETATE 667 MG CAPSULE PO SCH ×3 (09:22→19:01)
[2018-05-05] MEDS: CALCIUM CARBONATE CHEW 500 MG TABLET PO SCH (09:22)
[2018-05-05] MEDS: PANTOPRAZOLE 40 MG TABLET PO SCH (09:23)
[2018-05-05] MEDS: CARVEDILOL 25 MG TABLET PO SCH (09:23)
[2018-05-05] MEDS: DOCUSATE SODIUM 100 MG CAPSULE PO SCH (09:26)
[2018-05-05] MEDS: BACLOFEN 10 MG TABLET PO SCH ×2 (09:26→20:35)
[2018-05-05] MEDS: SIMVASTATIN 40 MG TABLET PO SCH (09:26)
[2018-05-05] MEDS ORDERED: NALOXONE 0.4 MG/ML VIAL IV ONE ×2 (10:11→10:19)
[2018-05-05 10:26] LABS: Total Protein,Body Fluid 5.3 G/DL
[2018-05-05 10:45] LABS: RBC,Pleural Fluid 931 T/CUMM
[2018-05-05 10:46] LABS: Eosinophils,Pleural Fluid 2 %; Lymphocytes,Pleural Fluid 72 %; Monocytes,Pleural Fluid 16 %; Neutrophils,Pleural Fluid 10 %
[2018-05-05] MEDS ORDERED: ALBUMIN 25% 25 GM in PREMIX 1 EACH IV ONE (12:06)
[2018-05-05] MEDS: CLOPIDOGREL 75 MG TABLET PO SCH (12:13)
[2018-05-05] MEDS: MULTIVITAMIN (BEROCCA) TABLET PO SCH (20:35)
[2018-05-06] MEDS: ALBUTEROL/IPRATROPIUM 3 ML NEB RESP TX SCH ×4 (01:50→19:05)
[2018-05-06] MEDS: LACTULOSE 20 GM/30 ML UDCUP PO SCH ×2 (02:57→11:38)
[2018-05-06] MEDS: INSULIN REGULAR 100 UNIT/ML SUBCUT SCH ×4 (07:40→20:41)
[2018-05-06 09:05] LABS: Basophils # 0.1 10*3/uL (0.0-0.2); Basophils % 0.7 % (0.0-0.8); Eosinophils # 0.2 10*3/uL (0.0-0.87); Eosinophils % 2.3 % (0.00-10.9); Hematocrit 33.9 VOL% (35.7-47.0); Hemoglobin 11.2 GM/DL (12.0-16.0); Immature Granulocytes % 0.3 %; Immature Granulocytes Absolute 0.03 #; Lymphocytes # 0.6 10*3/uL (1.4-4.0); Lymphocytes % 6.9 % (21.3-54.2); Mean Corpuscular Hemoglobin 33 PG (27-34); Mean Corpuscular Volume 98.3 FL (87-102); Mean Platelet Volume 10.7 FL (9.6-12.0); Monocytes # 0.6 10*3/uL (0.11-0.8); Monocytes % 6.8 % (1.7-12.7); Neutrophils # 7.6 10*3/uL (1.4-7.4); Platelet Count 234 T/CUMM (130-400); Red Blood Count 3.45 MC/CUMM (3.8-5.5); Red Cell Distribution Width 14.6 % (9.3-17.3); White Blood Count 9.1 T/CUMM (4-12)
[2018-05-06 09:28] LABS: ABG Base Excess 2.7 MMOL/L (-2.5-2.5); ABG HCO3 26.8 MMOL/L (20-26); ABG Oxygen Saturation 98.7 % (95-100); ABG PCO2 42.8 MM HG (35-48); ABG PH 7.416 (7.35-7.45); ABG TCO2 24.3 MMOL/L (23-27)
[2018-05-06 09:35] LABS: Calcium 8.8 MG/DL (8.5-10.1); Potassium 3.6 MMOL/L (3.5-5.1)
[2018-05-06] MEDS: SIMVASTATIN 40 MG TABLET PO SCH (10:21)
[2018-05-06] MEDS: CALCIUM ACETATE 667 MG CAPSULE PO SCH ×3 (10:21→17:39)
[2018-05-06] MEDS: BACLOFEN 10 MG TABLET PO SCH ×2 (10:21→20:42)
[2018-05-06] MEDS: CALCIUM CARBONATE CHEW 500 MG TABLET PO SCH (10:21)
[2018-05-06] MEDS: CLOPIDOGREL 75 MG TABLET PO SCH (10:21)
[2018-05-06] MEDS: DOCUSATE SODIUM 100 MG CAPSULE PO SCH (10:22)
[2018-05-06] MEDS: ASPIRIN EC 81 MG TABLET PO SCH (10:22)
[2018-05-06] MEDS: PANTOPRAZOLE 40 MG TABLET PO SCH (10:24)
[2018-05-06] MEDS: SODIUM CHLORIDE 0.9% 1,000 ML IV SCH ×2 (10:33→10:34)
[2018-05-06] MEDS: AMPICILLIN/SULBACTAM 3,000 MG in SODIUM CHLORIDE 0.9% 100 ML IV SCH (16:39)
[2018-05-06] MEDS ORDERED: VANCOMYCIN INJ 1,500 MG in SODIUM CHLORIDE 0.9% 500 ML IV ONE (17:00)
[2018-05-06] MEDS: MULTIVITAMIN (BEROCCA) TABLET PO SCH (20:41)
[2018-05-07] MEDS: ALBUTEROL/IPRATROPIUM 3 ML NEB RESP TX SCH ×4 (00:29→18:59)
[2018-05-07 04:42] LABS: ABG HCO3 24.4 MMOL/L (20-26); ABG Oxygen Saturation 97.8 % (95-100); ABG PCO2 45.1 MM HG (35-48); ABG PH 7.363 (7.35-7.45)
[2018-05-07 04:58] LABS: Basophils # 0.1 10*3/uL (0.0-0.2); Basophils % 0.7 % (0.0-0.8); Eosinophils # 0.3 10*3/uL (0.0-0.87); Eosinophils % 2.5 % (0.00-10.9); Hematocrit 34.9 VOL% (35.7-47.0); Hemoglobin 11.3 GM/DL (12.0-16.0); Immature Granulocytes % 0.3 %; Immature Granulocytes Absolute 0.03 #; Lymphocytes # 0.7 10*3/uL (1.4-4.0); Lymphocytes % 7.1 % (21.3-54.2); Mean Corpuscular HGB Conc 32.4 GM/DL (32-36); Mean Corpuscular Hemoglobin 32 PG (27-34); Mean Corpuscular Volume 98.3 FL (87-102); Mean Platelet Volume 11.5 FL (9.6-12.0); Monocytes # 0.8 10*3/uL (0.11-0.8); Monocytes % 7.5 % (1.7-12.7); Neutrophils # 8.2 10*3/uL (1.4-7.4); Neutrophils % 81.9 % (38.7-73.9); Platelet Count 234 T/CUMM (130-400); Red Blood Count 3.55 MC/CUMM (3.8-5.5); Red Cell Distribution Width 14.2 % (9.3-17.3)
[2018-05-07 05:23] LABS: Albumin 3.4 G/DL (3.4-5.0); Bilirubin,Total 0.5 MG/DL (0.2-1.0); Calcium 9.1 MG/DL (8.5-10.1); Potassium 4.3 MMOL/L (3.5-5.1); Total Protein 8.3 G/DL (6.4-8.3)
[2018-05-07] MEDS: AMPICILLIN/SULBACTAM 3,000 MG in SODIUM CHLORIDE 0.9% 100 ML IV SCH ×2 (05:47→17:10)
[2018-05-07] MEDS: SODIUM CHLORIDE 0.9% 1,000 ML IV SCH ×2 (08:06)
[2018-05-07] MEDS: CALCIUM ACETATE 667 MG CAPSULE PO SCH ×3 (08:07→17:03)
[2018-05-07] MEDS: CALCIUM CARBONATE CHEW 500 MG TABLET PO SCH (08:07)
[2018-05-07] MEDS: INSULIN REGULAR 100 UNIT/ML SUBCUT SCH ×3 (08:07→17:03)
[2018-05-07] MEDS: ASPIRIN EC 81 MG TABLET PO SCH (08:08)
[2018-05-07] MEDS: SIMVASTATIN 40 MG TABLET PO SCH (08:08)
[2018-05-07] MEDS: BACLOFEN 10 MG TABLET PO SCH ×2 (08:08→20:39)
[2018-05-07] MEDS: CLOPIDOGREL 75 MG TABLET PO SCH (08:08)
[2018-05-07] MEDS: PANTOPRAZOLE 40 MG TABLET PO SCH (08:08)
[2018-05-07] MEDS: DOCUSATE SODIUM 100 MG CAPSULE PO SCH (08:09)
[2018-05-07] MEDS: LACTULOSE 20 GM/30 ML UDCUP PO SCH (14:18)
[2018-05-07] MEDS: MULTIVITAMIN (BEROCCA) TABLET PO SCH (20:38)
[2018-05-08] MEDS: ALBUTEROL/IPRATROPIUM 3 ML NEB RESP TX SCH ×4 (00:37→19:41)
[2018-05-08] MEDS: AMPICILLIN/SULBACTAM 3,000 MG in SODIUM CHLORIDE 0.9% 100 ML IV SCH ×2 (05:35→17:33)
[2018-05-08] MEDS: INSULIN REGULAR 100 UNIT/ML SUBCUT SCH ×3 (06:27→17:39)
[2018-05-08] MEDS ORDERED: VANCOMYCIN INJ 500 MG in SODIUM CHLORIDE 0.9% 100 ML IV PRN (08:52)
[2018-05-08] MEDS: CALCIUM ACETATE 667 MG CAPSULE PO SCH ×2 (09:00→17:03)
[2018-05-08] MEDS: ASPIRIN EC 81 MG TABLET PO SCH (09:25)
[2018-05-08] MEDS: PANTOPRAZOLE 40 MG TABLET PO SCH (09:25)
[2018-05-08] MEDS: CALCIUM CARBONATE CHEW 500 MG TABLET PO SCH (09:25)
[2018-05-08] MEDS: DOCUSATE SODIUM 100 MG CAPSULE PO SCH (09:25)
[2018-05-08] MEDS: BACLOFEN 10 MG TABLET PO SCH ×2 (09:25→20:54)
[2018-05-08] MEDS: SODIUM CHLORIDE 0.9% 1,000 ML IV SCH ×2 (09:29→09:48)
[2018-05-08] MEDS: SIMVASTATIN 40 MG TABLET PO SCH (09:33)
[2018-05-08] MEDS: MULTIVITAMIN (BEROCCA) TABLET PO SCH (20:54)
[2018-05-09] MEDS: ALBUTEROL/IPRATROPIUM 3 ML NEB RESP TX SCH ×4 (00:36→19:13)
[2018-05-09] MEDS: INSULIN REGULAR 100 UNIT/ML SUBCUT SCH ×5 (01:23→18:19)
[2018-05-09 03:21] LABS: Basophils # 0.1 10*3/uL (0.0-0.2); Basophils % 0.4 % (0.0-0.8); Eosinophils # 0.4 10*3/uL (0.0-0.87); Eosinophils % 3.3 % (0.00-10.9); Hematocrit 32.1 VOL% (35.7-47.0); Hemoglobin 10.8 GM/DL (12.0-16.0); Immature Granulocytes % 0.4 %; Immature Granulocytes Absolute 0.05 #; Lymphocytes # 0.7 10*3/uL (1.4-4.0); Lymphocytes % 6.2 % (21.3-54.2); Mean Corpuscular HGB Conc 33.6 GM/DL (32-36); Mean Corpuscular Hemoglobin 32 PG (27-34); Mean Corpuscular Volume 96.1 FL (87-102); Mean Platelet Volume 11.8 FL (9.6-12.0); Monocytes # 0.8 10*3/uL (0.11-0.8); Monocytes % 7.1 % (1.7-12.7); Neutrophils # 9.6 10*3/uL (1.4-7.4); Neutrophils % 82.6 % (38.7-73.9); Platelet Count 260 T/CUMM (130-400); Red Blood Count 3.34 MC/CUMM (3.8-5.5); Red Cell Distribution Width 14.2 % (9.3-17.3); White Blood Count 11.6 T/CUMM (4-12)
[2018-05-09 03:43] LABS: Ammonia 20 UMOL/L (11-32)
[2018-05-09 03:51] LABS: Alanine Aminotransferase 14 U/L (13-56); Albumin 2.6 G/DL (3.4-5.0); Alkaline Phosphatase 117 U/L (45-117); Aspartate Amino Transferase 19 U/L (0-37); Bilirubin,Total < 0.39 MG/DL (0.2-1.0); Blood Urea Nitrogen 81 MG/DL (7-18); Calcium 9.3 MG/DL (8.5-10.1); Glucose 180 MG/DL (74-106); Osmolality,Calculated 301.8 MOS/KG (273-304); Potassium 4.8 MMOL/L (3.5-5.1); Sodium 137 MMOL/L (136-145); Total Protein 7.8 G/DL (6.4-8.3)
[2018-05-09 03:56] LABS: Calcium 9.5 MG/DL (8.5-10.1)
[2018-05-09 03:57] LABS: Osmolality,Calculated 302.7 MOS/KG (273-304); Potassium 4.8 MMOL/L (3.5-5.1); Prealbumin 18.1 MG/DL (20-40)
[2018-05-09] MEDS: AMPICILLIN/SULBACTAM 3,000 MG in SODIUM CHLORIDE 0.9% 100 ML IV SCH ×2 (05:09→17:04)
[2018-05-09] MEDS: CALCIUM CARBONATE CHEW 500 MG TABLET PO SCH (09:36)
[2018-05-09] MEDS: PANTOPRAZOLE 40 MG TABLET PO SCH ×2 (09:37→10:10)
[2018-05-09] MEDS: SIMVASTATIN 40 MG TABLET PO SCH (09:37)
[2018-05-09] MEDS: BACLOFEN 10 MG TABLET PO SCH ×2 (09:37→21:40)
[2018-05-09] MEDS: DOCUSATE SODIUM 100 MG CAPSULE PO SCH ×2 (09:37→10:10)
[2018-05-09] MEDS: ASPIRIN EC 81 MG TABLET PO SCH (09:37)
[2018-05-09] MEDS: CALCIUM ACETATE 667 MG CAPSULE PO SCH ×3 (09:37→17:04)
[2018-05-09] MEDS: DOCUSATE SODIUM 100 MG/10 ML UDCUP PER TUBE SCH (09:57)
[2018-05-09] MEDS: LANSOPRAZOLE ODT 30 MG TABLET PER TUBE SCH (09:57)
[2018-05-09] MEDS ORDERED: PNEUMOCOCCAL VACCINE (23 VALENT) 0.5 ML VIAL IM ONE (10:15)
[2018-05-09] MEDS ORDERED: VANCOMYCIN INJ 500 MG in SODIUM CHLORIDE 0.9% 100 ML IV ONE (21:00)
[2018-05-09] MEDS: MULTIVITAMIN (BEROCCA) TABLET PO SCH (21:40)
[2018-05-10] MEDS: ALBUTEROL/IPRATROPIUM 3 ML NEB RESP TX SCH ×4 (00:39→20:18)
[2018-05-10] MEDS: INSULIN REGULAR 100 UNIT/ML SUBCUT SCH ×5 (01:17→23:38)
[2018-05-10] MEDS: AMPICILLIN/SULBACTAM 3,000 MG in SODIUM CHLORIDE 0.9% 100 ML IV SCH ×2 (06:00→16:51)
[2018-05-10] MEDS: ASPIRIN EC 81 MG TABLET PO SCH (09:24)
[2018-05-10] MEDS: DOCUSATE SODIUM 100 MG/10 ML UDCUP PER TUBE SCH (09:24)
[2018-05-10] MEDS: SIMVASTATIN 40 MG TABLET PO SCH (09:24)
[2018-05-10] MEDS: CALCIUM ACETATE 667 MG CAPSULE PO SCH ×4 (09:25→16:51)
[2018-05-10] MEDS: BACLOFEN 10 MG TABLET PO SCH ×2 (09:25→20:29)
[2018-05-10] MEDS: LANSOPRAZOLE ODT 30 MG TABLET PER TUBE SCH (09:25)
[2018-05-10] MEDS: CALCIUM CARBONATE CHEW 500 MG TABLET PO SCH (09:25)
[2018-05-10] MEDS: MULTIVITAMIN (BEROCCA) TABLET PO SCH (20:29)
[2018-05-11] MEDS: ALBUTEROL/IPRATROPIUM 3 ML NEB RESP TX SCH ×4 (01:00→19:53)
[2018-05-11] MEDS: hydrALAZINE 20 MG/1 ML VIAL IV PRN (05:13)
[2018-05-11 05:14] LABS: Calcium 9.9 MG/DL (8.5-10.1); Osmolality,Calculated 297.1 MOS/KG (273-304); Potassium 4.7 MMOL/L (3.5-5.1)
[2018-05-11] MEDS: AMPICILLIN/SULBACTAM 3,000 MG in SODIUM CHLORIDE 0.9% 100 ML IV SCH ×2 (05:14→16:46)
[2018-05-11] MEDS: INSULIN REGULAR 100 UNIT/ML SUBCUT SCH ×3 (05:47→18:23)
[2018-05-11] MEDS: CALCIUM ACETATE 667 MG CAPSULE PO SCH ×3 (08:09→16:46)
[2018-05-11] MEDS: LANSOPRAZOLE ODT 30 MG TABLET PER TUBE SCH (08:09)
[2018-05-11] MEDS: CALCIUM CARBONATE CHEW 500 MG TABLET PO SCH (08:09)
[2018-05-11] MEDS: SIMVASTATIN 40 MG TABLET PO SCH (08:09)
[2018-05-11] MEDS: BACLOFEN 10 MG TABLET PO SCH ×2 (08:09→20:22)
[2018-05-11] MEDS: ASPIRIN EC 81 MG TABLET PO SCH (08:10)
[2018-05-11] MEDS: DOCUSATE SODIUM 100 MG/10 ML UDCUP PER TUBE SCH (08:10)
[2018-05-11] MEDS ORDERED: VANCOMYCIN INJ 500 MG in SODIUM CHLORIDE 0.9% 100 ML IV ONE (15:00)
[2018-05-11] MEDS: MULTIVITAMIN (BEROCCA) TABLET PO SCH (20:22)
[2018-05-12] MEDS: INSULIN REGULAR 100 UNIT/ML SUBCUT SCH ×2 (00:02→05:44)
[2018-05-12] MEDS: ALBUTEROL/IPRATROPIUM 3 ML NEB RESP TX SCH ×3 (01:37→13:27)
[2018-05-12 04:28] LABS: Basophils # 0.1 10*3/uL (0.0-0.2); Basophils % 0.7 % (0.0-0.8); Eosinophils # 0.5 10*3/uL (0.0-0.87); Eosinophils % 3.9 % (0.00-10.9); Hematocrit 34.4 VOL% (35.7-47.0); Hemoglobin 11.2 GM/DL (12.0-16.0); Immature Granulocytes % 0.5 %; Immature Granulocytes Absolute 0.06 #; Lymphocytes # 0.9 10*3/uL (1.4-4.0); Lymphocytes % 7.3 % (21.3-54.2); Mean Corpuscular HGB Conc 32.6 GM/DL (32-36); Mean Corpuscular Hemoglobin 32 PG (27-34); Mean Corpuscular Volume 97.5 FL (87-102); Mean Platelet Volume 11.4 FL (9.6-12.0); Monocytes # 0.8 10*3/uL (0.11-0.8); Monocytes % 6.2 % (1.7-12.7); Neutrophils # 9.9 10*3/uL (1.4-7.4); Neutrophils % 81.4 % (38.7-73.9); Platelet Count 268 T/CUMM (130-400); Red Blood Count 3.53 MC/CUMM (3.8-5.5); Red Cell Distribution Width 13.8 % (9.3-17.3); White Blood Count 12.1 T/CUMM (4-12)
[2018-05-12 04:41] LABS: Calcium 10.5 MG/DL (8.5-10.1); Potassium 4.2 MMOL/L (3.5-5.1)
[2018-05-12] MEDS: AMPICILLIN/SULBACTAM 3,000 MG in SODIUM CHLORIDE 0.9% 100 ML IV SCH ×2 (05:11→16:20)
[2018-05-12] MEDS: CALCIUM ACETATE 667 MG CAPSULE PO SCH ×3 (07:45→16:20)
[2018-05-12] MEDS: CALCIUM CARBONATE CHEW 500 MG TABLET PO SCH (07:45)
[2018-05-12] MEDS: BACLOFEN 10 MG TABLET PO SCH (08:40)
[2018-05-12] MEDS: SIMVASTATIN 40 MG TABLET PO SCH (08:40)
[2018-05-12] MEDS: CLOPIDOGREL 75 MG TABLET PO SCH (08:40)
[2018-05-12] MEDS: LANSOPRAZOLE ODT 30 MG TABLET PER TUBE SCH (08:40)
[2018-05-12] MEDS: ASPIRIN EC 81 MG TABLET PO SCH (08:40)
[2018-05-12] MEDS: DOCUSATE SODIUM 100 MG/10 ML UDCUP PER TUBE SCH (08:40)
[2018-05-12] MEDS: hydrALAZINE 20 MG/1 ML VIAL IV PRN (09:18)
[2018-05-12] MEDS ORDERED: LORazepam 2 MG/1 ML VIAL IV PRN (10:29)
[2018-05-12] MEDS ORDERED: DIAZEPAM 5 MG TABLET PO ONE (10:29)
[2018-05-12] MEDS ORDERED: INSULIN REGULAR 100 UNIT/ML SUBCUT SCH (12:00)
[2018-05-12 14:40] LABS: Basophils # 0.1 10*3/uL (0.0-0.2); Basophils % 0.8 % (0.0-0.8); Eosinophils # 0.5 10*3/uL (0.0-0.87); Eosinophils % 3.7 % (0.00-10.9); Hematocrit 31.6 VOL% (35.7-47.0); Hemoglobin 10.2 GM/DL (12.0-16.0); Immature Granulocytes % 0.6 %; Immature Granulocytes Absolute 0.07 #; Lymphocytes # 0.9 10*3/uL (1.4-4.0); Lymphocytes % 7.4 % (21.3-54.2); Mean Corpuscular HGB Conc 32.3 GM/DL (32-36); Mean Corpuscular Hemoglobin 32 PG (27-34); Mean Corpuscular Volume 99.7 FL (87-102); Monocytes # 0.7 10*3/uL (0.11-0.8); Monocytes % 5.6 % (1.7-12.7); Neutrophils # 10.3 10*3/uL (1.4-7.4); Neutrophils % 81.9 % (38.7-73.9); Platelet Count 233 T/CUMM (130-400); Red Blood Count 3.17 MC/CUMM (3.8-5.5); Red Cell Distribution Width 13.9 % (9.3-17.3); White Blood Count 12.5 T/CUMM (4-12)
[2018-05-12 14:57] LABS: Albumin 2.6 G/DL (3.4-5.0); Bilirubin,Total 0.4 MG/DL (0.2-1.0); Calcium 9.9 MG/DL (8.5-10.1); Osmolality,Calculated 297.8 MOS/KG (273-304); Potassium 4.3 MMOL/L (3.5-5.1); Total Protein 7.5 G/DL (6.4-8.3)
[2018-05-12 15:33] LABS: Glucose,CSF 120 MG/DL (40-70)
[2018-05-12 16:47] LABS: Eosinophils,CSF 2 %; Lymphocytes,CSF 4 %; Neutrophils,CSF 94 %; Red Blood Cell,CSF 70118 C/CUMM; White Blood Cell,CSF 21 C/CUMM
[2018-05-12 16:49] LABS: Appearance,CSF Cloudy
[2018-05-12 17:44] VITALS: BP 128/57
[2018-05-16 10:51] LABS: VDRL Spinal Fluid Negative (Negative)
[2018-05-16 14:56] LABS: Epstein-Barr Virus Result Negative (Negative); Epstein-Barr Virus Source CSF; Specimen Source CSF
[2018-05-17 09:06] LABS: CMV PCR Source CSF
[2018-05-18 12:26] LABS: M. Tuberculosis PCR Result Negative (Negative); M. Tuberculosis PCR Source CSF
[2018-05-18 15:20] LABS: Adenovirus PCR Negative (Negative); Specimen Source CSF
[2018-05-18 22:11] LABS: Enterovirus PCR Source CSF
== END 2018-05-12 16:45 | DRG 291 ==
LOC: EDUNIT# → N.ED 22:33 → N.EDINP 22:33 → SUATTDRO 05-02 02:07 → N.3E 05-02 03:37 → SUATTDRO 05-03 15:28 → N.ICU 05-04 23:42
PROVIDERS: ADMIT Hospitalist; ATTEND Family Medicine

== ENCOUNTER 2019-03-26 08:47 | Inpatient (IN) ==
[2019-03-26 09:36] LABS: Basophils # 0.1 10*3/uL (0.0-0.2); Basophils % 0.9 % (0.0-0.8); Eosinophils # 0.3 10*3/uL (0.0-0.87); Eosinophils % 4.1 % (0.00-10.9); Hematocrit 37.5 VOL% (35.7-47.0); Hemoglobin 11.8 GM/DL (12.0-16.0); Immature Granulocytes % 0.3 %; Immature Granulocytes Absolute 0.02 #; Lymphocytes # 0.9 10*3/uL (1.4-4.0); Lymphocytes % 13.8 % (21.3-54.2); Mean Corpuscular HGB Conc 31.5 GM/DL (32-36); Mean Corpuscular Volume 97.7 FL (87-102); Mean Platelet Volume 10.4 FL (9.6-12.0); Monocytes % 6.5 % (1.7-12.7); Neutrophils % 74.4 % (38.7-73.9); Platelet Count 222 T/CUMM (130-400); Red Blood Count 3.84 MC/CUMM (3.8-5.5); Red Cell Distribution Width 14.9 % (9.3-17.3); White Blood Count 6.8 T/CUMM (4-12)
[2019-03-26 09:57] LABS: Calcium 8.8 MG/DL (8.5-10.1); Osmolality,Calculated 290.5 MOS/KG (273-304)
[2019-03-26 10:20] LABS: INR 0.9; PT Patient Result 10.1 SECS; Partial Thromboplastin Time 29.2 SECS (0-40)
[2019-03-26] MEDS ORDERED: ceFAZolin 1,000 MG in SYRINGE 1 EACH IV ONE (11:35)
[2019-03-26] MEDS ORDERED: DEXTROSE 50% 25 GM/50 ML VIAL IV PRN ×2 (12:50→12:56)
[2019-03-26] MEDS ORDERED: ACETAMINOPHEN 325 MG TABLET PO PRN (12:50)
[2019-03-26] MEDS ORDERED: GLUCAGON 1 MG VIAL IM PRN ×2 (12:50→12:56)
[2019-03-26] MEDS ORDERED: FLUTICASONE 50 MCG NASAL SPRAY 16 GM BOTTLE BOTH NARES PRN (12:56)
[2019-03-26] MEDS ORDERED: NITROGLYCERIN SL 0.4 MG TABLET SL PRN (12:56)
[2019-03-26] MEDS: ALBUTEROL/IPRATROPIUM 3 ML NEB RESP TX SCH ×2 (13:31→19:37)
[2019-03-26] MEDS: Ferric Citrate [Auryxia] 420 MG PO SCH (16:06)
[2019-03-26] MEDS: INSULIN REGULAR 100 UNIT/ML SUBCUT SCH ×2 (17:30→21:50)
[2019-03-26 18:05] LABS: Hematocrit 33.2 VOL% (35.7-47.0); Hemoglobin 10.6 GM/DL (12.0-16.0)
[2019-03-26] MEDS: CARVEDILOL 3.125 MG TABLET PO SCH (21:50)
[2019-03-27] MEDS: ALBUTEROL/IPRATROPIUM 3 ML NEB RESP TX SCH ×4 (00:45→19:29)
[2019-03-27 04:51] LABS: Basophils # 0.1 10*3/uL (0.0-0.2); Eosinophils # 0.3 10*3/uL (0.0-0.87); Eosinophils % 4.8 % (0.00-10.9); Hemoglobin 10.1 GM/DL (12.0-16.0); Immature Granulocytes % 0.3 %; Immature Granulocytes Absolute 0.02 #; Lymphocytes % 16.5 % (21.3-54.2); Mean Corpuscular HGB Conc 31.6 GM/DL (32-36); Mean Corpuscular Volume 97.3 FL (87-102); Mean Platelet Volume 10.6 FL (9.6-12.0); Monocytes % 7.6 % (1.7-12.7); Neutrophils % 69.8 % (38.7-73.9); Platelet Count 214 T/CUMM (130-400); Red Blood Count 3.29 MC/CUMM (3.8-5.5); Red Cell Distribution Width 14.9 % (9.3-17.3); White Blood Count 6.2 T/CUMM (4-12)
[2019-03-27] MEDS ORDERED: FAMOTIDINE 20 MG TABLET PO ONE (07:00)
[2019-03-27] MEDS: INSULIN REGULAR 100 UNIT/ML SUBCUT SCH ×4 (07:49→22:43)
[2019-03-27] MEDS ORDERED: ceFAZolin 1,000 MG in SYRINGE 1 EACH IV ONE (08:00)
[2019-03-27] MEDS ORDERED: CALCIUM CARBONATE CHEW 500 MG TABLET PO SCH (08:00)
[2019-03-27] MEDS ORDERED: MULTIVITAMIN (BEROCCA) TABLET PO SCH (09:00)
[2019-03-27] MEDS ORDERED: ATORVASTATIN 20 MG TABLET PO SCH (09:00)
[2019-03-27] MEDS ORDERED: DOCUSATE SODIUM 100 MG CAPSULE PO SCH (09:00)
[2019-03-27] MEDS ORDERED: GABAPENTIN 100 MG CAPSULE PO SCH (09:00)
[2019-03-27] MEDS ORDERED: PANTOPRAZOLE 40 MG TABLET PO SCH (09:00)
[2019-03-27] MEDS: CARVEDILOL 3.125 MG TABLET PO SCH (10:23)
[2019-03-27] MEDS: Ferric Citrate [Auryxia] 420 MG PO SCH ×3 (10:23→16:18)
[2019-03-27] MEDS ORDERED: BUPIVACAINE MPF 0.25% 30 ML VIAL ONE (11:43)
[2019-03-27] MEDS ORDERED: LIDOCAINE 1%/EPI INJ 20 ML VIAL ONE (11:43)
[2019-03-27] MEDS ORDERED: HEPARIN 5,000 UNIT/1 ML VIAL ONE (11:44)
[2019-03-27] MEDS ORDERED: LEVOFLOXACIN INJ 500 MG in PREMIX 1 EACH IV ONE (12:39)
[2019-03-27] MEDS ORDERED: PROPOFOL 200 MG/20 ML VIAL IV ONE (13:48)
[2019-03-27] MEDS ORDERED: KETAMINE 500 MG/10 ML VIAL ONE (13:49)
[2019-03-27] MEDS ORDERED: ONDANSETRON 4 MG/2 ML VIAL ONE (13:49)
[2019-03-27] MEDS ORDERED: fentaNYL 100 MCG/2 ML VIAL ONE (13:49)
[2019-03-27] MEDS ORDERED: MIDAZOLAM 2 MG/2 ML VIAL ONE (13:49)
[2019-03-27] MEDS ORDERED: PHENYLEPHRINE 1 MG/10 ML SYRINGE IV ONE (13:50)
[2019-03-27] MEDS ORDERED: ONDANSETRON 4 MG/2 ML VIAL IV PRN (14:03)
[2019-03-27] MEDS: HYDROmorphone 2 MG/1 ML VIAL IV PRN ×2 (14:05→14:10)
[2019-03-27] MEDS ORDERED: HYDROmorphone 2 MG/1 ML VIAL ONE (14:06)
[2019-03-27] MEDS ORDERED: LIDOCAINE/PRILOCAINE CREAM 5 GM TUBE TOP PRN (15:28)
[2019-03-27] MEDS ORDERED: PROMETHAZINE 25 MG/1 ML VIAL IM PRN (15:40)
[2019-03-27] MEDS ORDERED: EPINEPHrine 1 MG/ML VIAL IV ONE (16:00)
[2019-03-27] MEDS ORDERED: DOPamine 800 MG/250 ML PREMIX IV ONE (16:00)
[2019-03-27] MEDS ORDERED: SODIUM BICARBONATE 50 MEQ/50 ML SYRINGE IV ONE (16:00)
[2019-03-27] MEDS ORDERED: EPINEPHrine 1 MG/10 ML SYRINGE IV ONE ×3 (16:00→18:16)
[2019-03-27] MEDS ORDERED: SODIUM BICARBONATE 50 MEQ/50 ML VIAL IV ONE (17:54)
[2019-03-27] MEDS ORDERED: SODIUM CHLORIDE 0.9% 1,000 ML IV SCH (18:00)
[2019-03-27] MEDS ORDERED: DOPamine 800 MG/250 ML PREMIX IV PRN (18:38)
[2019-03-27 18:39] LABS: ABG Base Excess -5.2 MMOL/L (-2.5-2.5); ABG HCO3 20.1 MMOL/L (20-26); ABG Oxygen Saturation 98.9 % (95-100); ABG PH 7.326 (7.35-7.45); ABG TCO2 18.4 MMOL/L (23-27)
[2019-03-27] MEDS ORDERED: ATROPINE 1 MG/10 ML SYRINGE IV ONE (18:49)
[2019-03-27 19:35] LABS: Bilirubin,Total 0.4 MG/DL (0.2-1.0); Calcium 8.7 MG/DL (8.5-10.1); Total Protein 7.7 G/DL (6.4-8.3)
[2019-03-27] MEDS ORDERED: methylPREDNISolone SOD SUC 125 MG/2 ML VIAL IV SCH (20:00)
[2019-03-27 20:58] LABS: PT Patient Result 10.6 SECS; Partial Thromboplastin Time 28.8 SECS (0-40)
[2019-03-27] MEDS ORDERED: PHENYLEPHRINE INJ 160 MG in SODIUM CHLORIDE 0.9% 234 ML IV PRN (21:27)
[2019-03-27 22:20] LABS: Basophils # 0.1 10*3/uL (0.0-0.2); Basophils % 0.5 % (0.0-0.8); Eosinophils % 0.1 % (0.00-10.9); Hematocrit 39.5 VOL% (35.7-47.0); Hemoglobin 12.3 GM/DL (12.0-16.0); Immature Granulocytes % 0.7 %; Immature Granulocytes Absolute 0.09 #; Lymphocytes # 0.5 10*3/uL (1.4-4.0); Lymphocytes % 3.3 % (21.3-54.2); Mean Corpuscular HGB Conc 31.1 GM/DL (32-36); Mean Corpuscular Volume 98.8 FL (87-102); Mean Platelet Volume 10.7 FL (9.6-12.0); Monocytes % 5.9 % (1.7-12.7); Neutrophils % 89.5 % (38.7-73.9); Platelet Count 208 T/CUMM (130-400); Red Cell Distribution Width 14.7 % (9.3-17.3); White Blood Count 13.7 T/CUMM (4-12)
[2019-03-27 23:42] LABS: Anisocytosis 1+; Band Neutrophils 2 % (0-10); Lymphocytes 2 % (20-55); Platelet Estimate Adequate; Segmented Neutrophils 95 % (50-85); Total Cells Counted 100
[2019-03-28] MEDS: ALBUTEROL/IPRATROPIUM 3 ML NEB RESP TX SCH ×4 (00:26→19:13)
[2019-03-28 02:00] LABS: Basophils # 0.1 10*3/uL (0.0-0.2); Basophils % 0.7 % (0.0-0.8); Eosinophils % 0.2 % (0.00-10.9); Hematocrit 35.8 VOL% (35.7-47.0); Hemoglobin 11.4 GM/DL (12.0-16.0); Immature Granulocytes % 0.5 %; Immature Granulocytes Absolute 0.07 #; Lymphocytes # 0.6 10*3/uL (1.4-4.0); Lymphocytes % 4.7 % (21.3-54.2); Mean Corpuscular HGB Conc 31.8 GM/DL (32-36); Mean Platelet Volume 10.1 FL (9.6-12.0); Monocytes % 4.6 % (1.7-12.7); Neutrophils % 89.3 % (38.7-73.9); Platelet Count 228 T/CUMM (130-400); Red Blood Count 3.69 MC/CUMM (3.8-5.5); Red Cell Distribution Width 14.8 % (9.3-17.3); White Blood Count 13.2 T/CUMM (4-12)
[2019-03-28 02:15] LABS: Osmolality,Calculated 277.1 MOS/KG (273-304)
[2019-03-28 02:30] LABS: Anisocytosis 1+; Band Neutrophils 4 % (0-10); Eosinophils 1 % (0-10); Lymphocytes 4 % (20-55); Segmented Neutrophils 90 % (50-85); Total Cells Counted 100
[2019-03-28 02:31] LABS: Platelet Estimate Adequate
[2019-03-28] MEDS ORDERED: HEPARIN 10,000 UNIT/10 ML VIAL IV SCH (08:00)
[2019-03-28] MEDS: INSULIN REGULAR 100 UNIT/ML SUBCUT SCH ×4 (08:21→20:22)
[2019-03-28] MEDS: FAMOTIDINE 20 MG/2 ML VIAL IV SCH (09:04)
[2019-03-28] MEDS ORDERED: ALBUMIN 25% 12.5 GM in PREMIX 1 EACH IV ONE (11:50)
[2019-03-28] MEDS: LEVOFLOXACIN 250 MG TABLET PO SCH (15:33)
[2019-03-28] MEDS: ISOSORBIDE MONONITRATE 30 MG TABLET PO SCH (17:00)
[2019-03-28] MEDS: ATORVASTATIN 40 MG TABLET PO SCH (20:23)
[2019-03-29] MEDS: ALBUTEROL/IPRATROPIUM 3 ML NEB RESP TX SCH ×4 (00:23→20:20)
[2019-03-29 04:43] LABS: Basophils % 0.5 % (0.0-0.8); Eosinophils # 0.1 10*3/uL (0.0-0.87); Eosinophils % 1.5 % (0.00-10.9); Hematocrit 29.7 VOL% (35.7-47.0); Hemoglobin 9.3 GM/DL (12.0-16.0); Immature Granulocytes % 0.4 %; Immature Granulocytes Absolute 0.03 #; Lymphocytes # 1.1 10*3/uL (1.4-4.0); Lymphocytes % 12.8 % (21.3-54.2); Mean Corpuscular HGB Conc 31.3 GM/DL (32-36); Mean Corpuscular Volume 98.7 FL (87-102); Monocytes % 6.5 % (1.7-12.7); Neutrophils % 78.3 % (38.7-73.9); Platelet Count 179 T/CUMM (130-400); Red Blood Count 3.01 MC/CUMM (3.8-5.5); Red Cell Distribution Width 14.8 % (9.3-17.3); White Blood Count 8.5 T/CUMM (4-12)
[2019-03-29 06:40] LABS: Calcium 8.7 MG/DL (8.5-10.1); Osmolality,Calculated 296.1 MOS/KG (273-304)
[2019-03-29] MEDS: INSULIN REGULAR 100 UNIT/ML SUBCUT SCH ×4 (07:55→21:18)
[2019-03-29] MEDS: FAMOTIDINE 20 MG/2 ML VIAL IV SCH (09:16)
[2019-03-29] MEDS: ISOSORBIDE MONONITRATE 30 MG TABLET PO SCH (09:16)
[2019-03-29] MEDS: PANTOPRAZOLE 40 MG TABLET PO SCH (09:18)
[2019-03-29] MEDS: SODIUM HYPOCHLORITE 0.25% IRRIG 473 ML BOTTLE TOP SCH (10:59)
[2019-03-29] MEDS: LEVOFLOXACIN 250 MG TABLET PO SCH (15:06)
[2019-03-29] MEDS: ASPIRIN EC 81 MG TABLET PO SCH (15:45)
[2019-03-29] MEDS: ATORVASTATIN 40 MG TABLET PO SCH (21:17)
[2019-03-30] MEDS: ALBUTEROL/IPRATROPIUM 3 ML NEB RESP TX SCH ×4 (00:24→20:10)
[2019-03-30 05:29] LABS: Basophils # 0.1 10*3/uL (0.0-0.2); Basophils % 0.9 % (0.0-0.8); Eosinophils # 0.4 10*3/uL (0.0-0.87); Eosinophils % 5.3 % (0.00-10.9); Hematocrit 29.5 VOL% (35.7-47.0); Hemoglobin 9.2 GM/DL (12.0-16.0); Immature Granulocytes % 0.5 %; Immature Granulocytes Absolute 0.03 #; Lymphocytes # 0.9 10*3/uL (1.4-4.0); Mean Corpuscular HGB Conc 31.2 GM/DL (32-36); Mean Corpuscular Volume 97.7 FL (87-102); Mean Platelet Volume 10.4 FL (9.6-12.0); Monocytes % 7.8 % (1.7-12.7); Neutrophils % 71.5 % (38.7-73.9); Platelet Count 176 T/CUMM (130-400); Red Blood Count 3.02 MC/CUMM (3.8-5.5); Red Cell Distribution Width 14.6 % (9.3-17.3); White Blood Count 6.7 T/CUMM (4-12)
[2019-03-30 06:02] LABS: Albumin 3.1 G/DL (3.4-5.0); Bilirubin,Total 0.6 MG/DL (0.2-1.0); Calcium 9.1 MG/DL (8.5-10.1); Osmolality,Calculated 282.2 MOS/KG (273-304); Total Protein 7.3 G/DL (6.4-8.3)
[2019-03-30] MEDS: SODIUM HYPOCHLORITE 0.25% IRRIG 473 ML BOTTLE TOP SCH (08:36)
[2019-03-30] MEDS: ASPIRIN EC 81 MG TABLET PO SCH (08:36)
[2019-03-30] MEDS: ISOSORBIDE MONONITRATE 30 MG TABLET PO SCH (08:36)
[2019-03-30] MEDS: PANTOPRAZOLE 40 MG TABLET PO SCH (08:36)
[2019-03-30] MEDS: INSULIN REGULAR 100 UNIT/ML SUBCUT SCH ×4 (08:36→20:42)
[2019-03-30] MEDS: MAGNESIUM HYDROXIDE SUSP 30 ML UDCUP PO PRN ×2 (10:32→20:28)
[2019-03-30] MEDS: LEVOFLOXACIN 250 MG TABLET PO SCH (12:49)
[2019-03-30] MEDS: ONDANSETRON 4 MG/2 ML VIAL IV PRN (18:26)
[2019-03-30] MEDS: ATORVASTATIN 40 MG TABLET PO SCH (20:28)
[2019-03-31] MEDS: ALBUTEROL/IPRATROPIUM 3 ML NEB RESP TX SCH ×4 (01:06→18:45)
[2019-03-31] MEDS: INSULIN REGULAR 100 UNIT/ML SUBCUT SCH ×4 (08:49→22:14)
[2019-03-31] MEDS: ISOSORBIDE MONONITRATE 30 MG TABLET PO SCH (11:57)
[2019-03-31] MEDS: PANTOPRAZOLE 40 MG TABLET PO SCH (11:58)
[2019-03-31] MEDS: ASPIRIN EC 81 MG TABLET PO SCH (11:58)
[2019-03-31] MEDS: SODIUM HYPOCHLORITE 0.25% IRRIG 473 ML BOTTLE TOP SCH (11:59)
[2019-03-31] MEDS: MAGNESIUM HYDROXIDE SUSP 30 ML UDCUP PO PRN (12:01)
[2019-03-31] MEDS: LEVOFLOXACIN 250 MG TABLET PO SCH (12:01)
[2019-03-31] MEDS: ATORVASTATIN 40 MG TABLET PO SCH (22:14)
[2019-04-01] MEDS: ALBUTEROL/IPRATROPIUM 3 ML NEB RESP TX SCH ×4 (00:19→20:15)
[2019-04-01] MEDS ORDERED: MAGNESIUM CITRATE 300 ML BOTTLE PO PRN (09:22)
[2019-04-01] MEDS: ASPIRIN EC 81 MG TABLET PO SCH (10:26)
[2019-04-01] MEDS: ISOSORBIDE MONONITRATE 30 MG TABLET PO SCH (10:26)
[2019-04-01] MEDS: PANTOPRAZOLE 40 MG TABLET PO SCH (10:26)
[2019-04-01] MEDS: LACTULOSE 20 GM/30 ML UDCUP PO SCH ×3 (10:28→17:51)
[2019-04-01] MEDS: MAGNESIUM HYDROXIDE SUSP 30 ML UDCUP PO PRN (10:28)
[2019-04-01] MEDS: INSULIN REGULAR 100 UNIT/ML SUBCUT SCH ×4 (10:30→20:19)
[2019-04-01 13:17] LABS: Basophils # 0.1 10*3/uL (0.0-0.2); Basophils % 0.6 % (0.0-0.8); Eosinophils # 0.3 10*3/uL (0.0-0.87); Eosinophils % 4.3 % (0.00-10.9); Hematocrit 32.6 VOL% (35.7-47.0); Hemoglobin 10.2 GM/DL (12.0-16.0); Immature Granulocytes % 0.5 %; Immature Granulocytes Absolute 0.04 #; Lymphocytes % 11.9 % (21.3-54.2); Mean Corpuscular HGB Conc 31.3 GM/DL (32-36); Mean Corpuscular Volume 99.1 FL (87-102); Mean Platelet Volume 10.7 FL (9.6-12.0); Monocytes % 6.9 % (1.7-12.7); Neutrophils % 75.8 % (38.7-73.9); Platelet Count 243 T/CUMM (130-400); Red Blood Count 3.29 MC/CUMM (3.8-5.5); Red Cell Distribution Width 14.6 % (9.3-17.3)
[2019-04-01] MEDS: LEVOFLOXACIN 250 MG TABLET PO SCH (13:25)
[2019-04-01 13:32] LABS: Alanine Aminotransferase 12 U/L (13-56); Albumin 3.2 G/DL (3.4-5.0); Alkaline Phosphatase 240 U/L (45-117); Aspartate Amino Transferase 23 U/L (0-37); Bilirubin,Total < 0.39 MG/DL (0.2-1.0); Blood Urea Nitrogen 67 MG/DL (7-18); Calcium 9.6 MG/DL (8.5-10.1); Glucose 191 MG/DL (74-106); Total Protein 7.9 G/DL (6.4-8.3)
[2019-04-01] MEDS ORDERED: SODIUM POLYSTYRENE SULFATE 15 GM/60 ML BOTTLE PO STA (13:40)
[2019-04-01] MEDS ORDERED: ATROPINE 1 MG/10 ML SYRINGE IV ONE (14:11)
[2019-04-01] MEDS ORDERED: ATROPINE 1 MG/10 ML SYRINGE ONE (14:13)
[2019-04-01] MEDS: DOPamine 800 MG/250 ML PREMIX IV PRN (14:21)
[2019-04-01] MEDS ORDERED: SODIUM POLYSTYRENE SULFATE 15 GM/60 ML BOTTLE RECTAL ONE (14:32)
[2019-04-01] MEDS: SODIUM HYPOCHLORITE 0.25% IRRIG 473 ML BOTTLE TOP SCH (15:32)
[2019-04-01] MEDS ORDERED: SODIUM BICARBONATE 2.4 MEQ/5 ML VIAL ONE (15:36)
[2019-04-01] MEDS ORDERED: LIDOCAINE 1% 20 ML VIAL ONE (15:36)
[2019-04-01] MEDS ORDERED: HEPARIN/NACL 0.9% 2 UNITS/ML 1,000 ML IV ONE (15:36)
[2019-04-01] MEDS ORDERED: MIDAZOLAM 2 MG/2 ML VIAL ONE (15:48)
[2019-04-01] MEDS ORDERED: fentaNYL 100 MCG/2 ML VIAL ONE (15:48)
[2019-04-01] MEDS ORDERED: ceFAZolin 1,000 MG VIAL IRRIG ONE (17:58)
[2019-04-01] MEDS ORDERED: ceFAZolin 1,000 MG in SYRINGE 1 EACH IV ONE (17:58)
[2019-04-01] MEDS ORDERED: ETOMIDATE 40 MG/20 ML VIAL IV ONE (18:17)
[2019-04-01] MEDS ORDERED: KETAMINE 500 MG/10 ML VIAL ONE (18:17)
[2019-04-01] MEDS ORDERED: GLYCOPYRROLATE 0.4 MG/2 ML VIAL ONE (18:17)
[2019-04-01 18:53] LABS: Calcium 9.6 MG/DL (8.5-10.1); Osmolality,Calculated 298.1 MOS/KG (273-304)
[2019-04-01] MEDS: ATORVASTATIN 40 MG TABLET PO SCH (20:19)
[2019-04-01] MEDS: MORPHINE 4 MG/1 ML VIAL IV PRN (20:20)
[2019-04-01] MEDS ORDERED: CALCIUM GLUCONATE 1,000 MG in SODIUM CHLORIDE 0.9% 100 ML IV ONE (21:20)
[2019-04-01] MEDS ORDERED: ALBUTEROL 2.5 MG/3 ML NEB RESP TX STA (22:01)
[2019-04-01] MEDS: ONDANSETRON 4 MG/2 ML VIAL IV PRN (23:10)
[2019-04-02] MEDS ORDERED: ALBUTEROL 2.5 MG/3 ML NEB RESP TX ONE (00:09)
[2019-04-02] MEDS ORDERED: SODIUM POLYSTYRENE SULFATE 15 GM/60 ML BOTTLE PO ONE (00:19)
[2019-04-02] MEDS: ALBUTEROL/IPRATROPIUM 3 ML NEB RESP TX SCH ×4 (00:25→19:21)
[2019-04-02] MEDS: ONDANSETRON 4 MG/2 ML VIAL IV PRN ×2 (04:42→08:52)
[2019-04-02 04:49] LABS: Basophils # 0.1 10*3/uL (0.0-0.2); Basophils % 0.4 % (0.0-0.8); Eosinophils # 0.2 10*3/uL (0.0-0.87); Eosinophils % 1.3 % (0.00-10.9); Hematocrit 34.2 VOL% (35.7-47.0); Hemoglobin 10.4 GM/DL (12.0-16.0); Immature Granulocytes % 0.4 %; Immature Granulocytes Absolute 0.05 #; Lymphocytes # 0.7 10*3/uL (1.4-4.0); Lymphocytes % 6.5 % (21.3-54.2); Mean Corpuscular HGB Conc 30.4 GM/DL (32-36); Mean Platelet Volume 10.8 FL (9.6-12.0); Monocytes % 5.8 % (1.7-12.7); Neutrophils % 85.6 % (38.7-73.9); Platelet Count 268 T/CUMM (130-400); Red Blood Count 3.42 MC/CUMM (3.8-5.5); Red Cell Distribution Width 14.6 % (9.3-17.3); White Blood Count 11.4 T/CUMM (4-12)
[2019-04-02 05:10] LABS: Calcium 10.3 MG/DL (8.5-10.1); Osmolality,Calculated 302.7 MOS/KG (273-304)
[2019-04-02] MEDS ORDERED: diphenhydrAMINE CAP 25 MG CAPSULE PO ONE (07:01)
[2019-04-02] MEDS ORDERED: DIAZEPAM 5 MG TABLET PO ONE (07:01)
[2019-04-02] MEDS ORDERED: VANCOMYCIN 500 MG VIAL IRRIG ONE (07:01)
[2019-04-02] MEDS ORDERED: VANCOMYCIN INJ 500 MG in SODIUM CHLORIDE 0.9% 100 ML IV ONE (07:01)
[2019-04-02] MEDS: INSULIN REGULAR 100 UNIT/ML SUBCUT SCH ×4 (07:25→20:42)
[2019-04-02] MEDS: SODIUM CHLORIDE 0.9% 1,000 ML IV SCH ×2 (08:45→08:46)
[2019-04-02] MEDS: ASPIRIN EC 81 MG TABLET PO SCH (08:46)
[2019-04-02] MEDS: PANTOPRAZOLE 40 MG TABLET PO SCH (08:46)
[2019-04-02] MEDS: SODIUM HYPOCHLORITE 0.25% IRRIG 473 ML BOTTLE TOP SCH (11:16)
[2019-04-02] MEDS: LEVOFLOXACIN 250 MG TABLET PO SCH (13:36)
[2019-04-02] MEDS ORDERED: diphenhydrAMINE CAP 25 MG CAPSULE ONE (13:50)
[2019-04-02] MEDS ORDERED: DIAZEPAM 5 MG TABLET ONE (13:51)
[2019-04-02] MEDS ORDERED: LIDOCAINE 1% 20 ML VIAL ONE ×2 (14:26)
[2019-04-02] MEDS ORDERED: VANCOMYCIN 500 MG VIAL ONE (14:26)
[2019-04-02] MEDS ORDERED: MIDAZOLAM 2 MG/2 ML VIAL ONE (14:31)
[2019-04-02] MEDS ORDERED: fentaNYL 100 MCG/2 ML VIAL ONE (14:31)
[2019-04-02] MEDS ORDERED: TISSUE ADHESIVE 1 EACH APPLICATOR TOP ONE (15:07)
[2019-04-02] MEDS: ATORVASTATIN 40 MG TABLET PO SCH (21:46)
[2019-04-03] MEDS: ALBUTEROL/IPRATROPIUM 3 ML NEB RESP TX SCH ×4 (00:35→19:22)
[2019-04-03] MEDS: DOPamine 800 MG/250 ML PREMIX IV PRN (01:55)
[2019-04-03 04:21] LABS: Basophils # 0.1 10*3/uL (0.0-0.2); Basophils % 0.6 % (0.0-0.8); Eosinophils # 0.7 10*3/uL (0.0-0.87); Eosinophils % 7.4 % (0.00-10.9); Hematocrit 29.6 VOL% (35.7-47.0); Immature Granulocytes % 0.5 %; Immature Granulocytes Absolute 0.05 #; Lymphocytes # 0.6 10*3/uL (1.4-4.0); Lymphocytes % 6.6 % (21.3-54.2); Mean Corpuscular HGB Conc 30.4 GM/DL (32-36); Mean Corpuscular Volume 100.3 FL (87-102); Mean Platelet Volume 10.9 FL (9.6-12.0); Neutrophils % 77.9 % (38.7-73.9); Platelet Count 246 T/CUMM (130-400); Red Blood Count 2.95 MC/CUMM (3.8-5.5); Red Cell Distribution Width 14.6 % (9.3-17.3); White Blood Count 9.8 T/CUMM (4-12)
[2019-04-03 04:33] LABS: Calcium 9.2 MG/DL (8.5-10.1)
[2019-04-03] MEDS ORDERED: SODIUM POLYSTYRENE SULFATE 15 GM/60 ML BOTTLE PO STA (04:58)
[2019-04-03] MEDS: MORPHINE 4 MG/1 ML VIAL IV PRN (05:20)
[2019-04-03] MEDS: INSULIN REGULAR 100 UNIT/ML SUBCUT SCH ×4 (08:46→21:15)
[2019-04-03] MEDS: SODIUM CHLORIDE 0.9% 1,000 ML IV SCH ×2 (08:47→15:16)
[2019-04-03] MEDS: ASPIRIN EC 81 MG TABLET PO SCH (09:19)
[2019-04-03] MEDS: PANTOPRAZOLE 40 MG TABLET PO SCH (09:19)
[2019-04-03] MEDS ORDERED: HEPARIN/NACL 0.9% 2 UNITS/ML 0 ML IV ONE (11:40)
[2019-04-03] MEDS ORDERED: VANCOMYCIN INJ 500 MG in SODIUM CHLORIDE 0.9% 100 ML IV ONE (12:00)
[2019-04-03] MEDS ORDERED: DIAZEPAM 5 MG TABLET PO ONE (12:00)
[2019-04-03] MEDS ORDERED: diphenhydrAMINE CAP 25 MG CAPSULE PO ONE (12:00)
[2019-04-03 12:48] LABS: Basophils # 0.1 10*3/uL (0.0-0.2); Basophils % 0.9 % (0.0-0.8); Eosinophils # 0.5 10*3/uL (0.0-0.87); Eosinophils % 5.9 % (0.00-10.9); Hematocrit 31.1 VOL% (35.7-47.0); Hemoglobin 9.4 GM/DL (12.0-16.0); Immature Granulocytes % 0.4 %; Immature Granulocytes Absolute 0.03 #; Lymphocytes # 0.4 10*3/uL (1.4-4.0); Lymphocytes % 5.3 % (21.3-54.2); Mean Corpuscular HGB Conc 30.2 GM/DL (32-36); Mean Platelet Volume 10.2 FL (9.6-12.0); Monocytes % 7.6 % (1.7-12.7); Neutrophils % 79.9 % (38.7-73.9); Platelet Count 218 T/CUMM (130-400); Red Blood Count 3.11 MC/CUMM (3.8-5.5); Red Cell Distribution Width 14.5 % (9.3-17.3); White Blood Count 8.2 T/CUMM (4-12)
[2019-04-03 13:12] LABS: Calcium 9.1 MG/DL (8.5-10.1); Osmolality,Calculated 278.8 MOS/KG (273-304)
[2019-04-03] MEDS ORDERED: LIDOCAINE 1% 20 ML VIAL ONE (13:20)
[2019-04-03] MEDS ORDERED: HEPARIN/NACL 0.9% 2 UNITS/ML 500 ML IV ONE (13:21)
[2019-04-03] MEDS ORDERED: HEPARIN/NACL 0.9% 2 UNITS/ML 1,000 ML IV ONE (13:22)
[2019-04-03] MEDS ORDERED: VANCOMYCIN 500 MG VIAL ONE (13:31)
[2019-04-03] MEDS ORDERED: GLUCAGON 1 MG VIAL IM PRN (14:14)
[2019-04-03] MEDS ORDERED: DEXTROSE 50% 25 GM/50 ML VIAL IV PRN (14:14)
[2019-04-03] MEDS ORDERED: MIDAZOLAM 2 MG/2 ML VIAL ONE (14:45)
[2019-04-03] MEDS ORDERED: HEPARIN 10,000 UNIT/10 ML VIAL ONE (14:45)
[2019-04-03] MEDS ORDERED: KETAMINE 500 MG/10 ML VIAL ONE (14:45)
[2019-04-03] MEDS ORDERED: ONDANSETRON 4 MG/2 ML VIAL ONE (14:45)
[2019-04-03] MEDS: SODIUM HYPOCHLORITE 0.25% IRRIG 473 ML BOTTLE TOP SCH (15:00)
[2019-04-03] MEDS: LEVOFLOXACIN 250 MG TABLET PO SCH (15:14)
[2019-04-03] MEDS: ATORVASTATIN 40 MG TABLET PO SCH (21:18)
[2019-04-04] MEDS: ALBUTEROL/IPRATROPIUM 3 ML NEB RESP TX SCH ×4 (01:35→19:30)
[2019-04-04 03:42] LABS: Basophils # 0.1 10*3/uL (0.0-0.2); Basophils % 0.7 % (0.0-0.8); Eosinophils # 0.6 10*3/uL (0.0-0.87); Eosinophils % 7.5 % (0.00-10.9); Hematocrit 25.6 VOL% (35.7-47.0); Hemoglobin 7.9 GM/DL (12.0-16.0); Immature Granulocytes % 0.2 %; Immature Granulocytes Absolute 0.02 #; Lymphocytes # 0.7 10*3/uL (1.4-4.0); Mean Corpuscular HGB Conc 30.9 GM/DL (32-36); Mean Platelet Volume 11.2 FL (9.6-12.0); Neutrophils % 74.6 % (38.7-73.9); Platelet Count 225 T/CUMM (130-400); Red Blood Count 2.56 MC/CUMM (3.8-5.5); Red Cell Distribution Width 14.4 % (9.3-17.3)
[2019-04-04 04:00] LABS: Calcium 9.1 MG/DL (8.5-10.1)
[2019-04-04] MEDS: INSULIN REGULAR 100 UNIT/ML SUBCUT SCH ×4 (07:54→22:07)
[2019-04-04 07:57] LABS: Hematocrit 26.2 VOL% (35.7-47.0)
[2019-04-04] MEDS: SODIUM HYPOCHLORITE 0.25% IRRIG 473 ML BOTTLE TOP SCH (09:46)
[2019-04-04] MEDS: ASPIRIN EC 81 MG TABLET PO SCH (09:46)
[2019-04-04] MEDS: PANTOPRAZOLE 40 MG TABLET PO SCH (09:46)
[2019-04-04] MEDS: LEVOFLOXACIN 250 MG TABLET PO SCH (14:57)
[2019-04-04] MEDS: ATORVASTATIN 40 MG TABLET PO SCH (22:09)
[2019-04-04] MEDS: METOPROLOL TARTRATE 25 MG TABLET PO SCH (22:09)
[2019-04-05] MEDS: ALBUTEROL/IPRATROPIUM 3 ML NEB RESP TX SCH ×5 (00:56→19:16)
[2019-04-05 06:06] LABS: Basophils # 0.1 10*3/uL (0.0-0.2); Basophils % 0.7 % (0.0-0.8); Eosinophils # 0.5 10*3/uL (0.0-0.87); Eosinophils % 6.7 % (0.00-10.9); Hematocrit 27.5 VOL% (35.7-47.0); Hemoglobin 8.3 GM/DL (12.0-16.0); Immature Granulocytes % 0.5 %; Immature Granulocytes Absolute 0.04 #; Lymphocytes # 0.9 10*3/uL (1.4-4.0); Lymphocytes % 12.1 % (21.3-54.2); Mean Corpuscular HGB Conc 30.2 GM/DL (32-36); Mean Corpuscular Volume 100.7 FL (87-102); Mean Platelet Volume 10.5 FL (9.6-12.0); Monocytes % 8.5 % (1.7-12.7); Neutrophils % 71.5 % (38.7-73.9); Platelet Count 220 T/CUMM (130-400); Red Blood Count 2.73 MC/CUMM (3.8-5.5); Red Cell Distribution Width 14.5 % (9.3-17.3); White Blood Count 7.5 T/CUMM (4-12)
[2019-04-05 06:38] LABS: Calcium 8.9 MG/DL (8.5-10.1)
[2019-04-05] MEDS: INSULIN REGULAR 100 UNIT/ML SUBCUT SCH ×4 (08:20→22:07)
[2019-04-05] MEDS: ASPIRIN EC 81 MG TABLET PO SCH (09:16)
[2019-04-05] MEDS: METOPROLOL TARTRATE 25 MG TABLET PO SCH ×2 (09:16→22:07)
[2019-04-05] MEDS: PANTOPRAZOLE 40 MG TABLET PO SCH (09:16)
[2019-04-05] MEDS ORDERED: ceFAZolin 1,000 MG in SYRINGE 1 EACH IV ONE (10:43)
[2019-04-05] MEDS: ACETAMINOPHEN 325 MG TABLET PO PRN (11:18)
[2019-04-05] MEDS: SODIUM HYPOCHLORITE 0.25% IRRIG 473 ML BOTTLE TOP SCH (11:19)
[2019-04-05] MEDS: ATORVASTATIN 40 MG TABLET PO SCH (22:07)
[2019-04-06] MEDS: ALBUTEROL/IPRATROPIUM 3 ML NEB RESP TX SCH ×4 (00:09→19:30)
[2019-04-06 05:16] LABS: Basophils # 0.1 10*3/uL (0.0-0.2); Basophils % 0.8 % (0.0-0.8); Eosinophils # 0.5 10*3/uL (0.0-0.87); Eosinophils % 6.9 % (0.00-10.9); Hematocrit 25.1 VOL% (35.7-47.0); Hemoglobin 7.7 GM/DL (12.0-16.0); Immature Granulocytes % 0.7 %; Immature Granulocytes Absolute 0.05 #; Lymphocytes # 0.8 10*3/uL (1.4-4.0); Lymphocytes % 11.2 % (21.3-54.2); Mean Corpuscular HGB Conc 30.7 GM/DL (32-36); Mean Platelet Volume 10.8 FL (9.6-12.0); Monocytes % 8.3 % (1.7-12.7); Neutrophils % 72.1 % (38.7-73.9); Platelet Count 218 T/CUMM (130-400); Red Blood Count 2.51 MC/CUMM (3.8-5.5); Red Cell Distribution Width 14.1 % (9.3-17.3); White Blood Count 7.3 T/CUMM (4-12)
[2019-04-06 05:28] LABS: Calcium 9.3 MG/DL (8.5-10.1); Osmolality,Calculated 284.5 MOS/KG (273-304)
[2019-04-06] MEDS ORDERED: FAMOTIDINE 20 MG TABLET PO ONE (06:00)
[2019-04-06] MEDS ORDERED: ceFAZolin 1,000 MG in SYRINGE 1 EACH IV ONE (06:00)
[2019-04-06] MEDS: INSULIN REGULAR 100 UNIT/ML SUBCUT SCH ×4 (08:09→21:33)
[2019-04-06] MEDS: SODIUM HYPOCHLORITE 0.25% IRRIG 473 ML BOTTLE TOP SCH (08:09)
[2019-04-06] MEDS ORDERED: LIDOCAINE 1%/EPI INJ 20 ML VIAL ONE (13:09)
[2019-04-06] MEDS ORDERED: BUPIVACAINE MPF 0.25% /EPI 30 ML VIAL ONE (13:09)
[2019-04-06] MEDS ORDERED: HEPARIN 5,000 UNIT/1 ML VIAL ONE (13:09)
[2019-04-06] MEDS ORDERED: SODIUM CHLORIDE 0.9% 250 ML IV SCH (14:00)
[2019-04-06] MEDS ORDERED: PROPOFOL 200 MG/20 ML VIAL IV ONE (15:06)
[2019-04-06] MEDS ORDERED: fentaNYL 100 MCG/2 ML VIAL ONE (15:06)
[2019-04-06] MEDS ORDERED: MIDAZOLAM 2 MG/2 ML VIAL ONE (15:06)
[2019-04-06] MEDS: ASPIRIN EC 81 MG TABLET PO SCH (17:43)
[2019-04-06] MEDS: PANTOPRAZOLE 40 MG TABLET PO SCH (17:43)
[2019-04-06] MEDS: METOPROLOL TARTRATE 25 MG TABLET PO SCH ×2 (17:45→21:34)
[2019-04-06] MEDS: ATORVASTATIN 40 MG TABLET PO SCH (21:33)
[2019-04-07] MEDS: ALBUTEROL/IPRATROPIUM 3 ML NEB RESP TX SCH ×4 (00:50→19:07)
[2019-04-07] MEDS: METOPROLOL TARTRATE 25 MG TABLET PO SCH ×2 (08:27→22:00)
[2019-04-07] MEDS: DOCUSATE SODIUM 100 MG CAPSULE PO SCH (08:28)
[2019-04-07] MEDS: PANTOPRAZOLE 40 MG TABLET PO SCH (08:28)
[2019-04-07] MEDS: ASPIRIN EC 81 MG TABLET PO SCH (08:28)
[2019-04-07] MEDS: INSULIN REGULAR 100 UNIT/ML SUBCUT SCH ×4 (08:29→21:59)
[2019-04-07] MEDS: SODIUM HYPOCHLORITE 0.25% IRRIG 473 ML BOTTLE TOP SCH (08:29)
[2019-04-07] MEDS ORDERED: SODIUM CHLORIDE 0.9% 1,000 ML IV PRN (09:44)
[2019-04-07 11:51] LABS: Hematocrit 23.9 VOL% (35.7-47.0); Hemoglobin 7.3 GM/DL (12.0-16.0)
[2019-04-07] MEDS: ATORVASTATIN 40 MG TABLET PO SCH (22:01)
[2019-04-08] MEDS: ALBUTEROL/IPRATROPIUM 3 ML NEB RESP TX SCH ×4 (01:17→19:36)
[2019-04-08 06:18] LABS: Basophils # 0.1 10*3/uL (0.0-0.2); Basophils % 0.9 % (0.0-0.8); Eosinophils # 0.6 10*3/uL (0.0-0.87); Eosinophils % 7.5 % (0.00-10.9); Hematocrit 30.5 VOL% (35.7-47.0); Hemoglobin 9.8 GM/DL (12.0-16.0); Immature Granulocytes % 0.5 %; Immature Granulocytes Absolute 0.04 #; Lymphocytes % 11.8 % (21.3-54.2); Mean Corpuscular HGB Conc 32.1 GM/DL (32-36); Mean Corpuscular Volume 95.9 FL (87-102); Mean Platelet Volume 10.5 FL (9.6-12.0); Monocytes % 6.9 % (1.7-12.7); Neutrophils % 72.4 % (38.7-73.9); Platelet Count 213 T/CUMM (130-400); Red Blood Count 3.18 MC/CUMM (3.8-5.5); Red Cell Distribution Width 15.6 % (9.3-17.3); White Blood Count 8.2 T/CUMM (4-12)
[2019-04-08] MEDS: INSULIN REGULAR 100 UNIT/ML SUBCUT SCH ×4 (08:53→22:53)
[2019-04-08] MEDS: DOCUSATE SODIUM 100 MG CAPSULE PO SCH (09:36)
[2019-04-08] MEDS: PANTOPRAZOLE 40 MG TABLET PO SCH (09:36)
[2019-04-08] MEDS: METOPROLOL TARTRATE 25 MG TABLET PO SCH ×2 (09:36→20:28)
[2019-04-08] MEDS: ASPIRIN EC 81 MG TABLET PO SCH (09:36)
[2019-04-08] MEDS: SODIUM HYPOCHLORITE 0.25% IRRIG 473 ML BOTTLE TOP SCH (09:37)
[2019-04-08] MEDS: ATORVASTATIN 40 MG TABLET PO SCH (20:28)
[2019-04-08] MEDS: MAGNESIUM HYDROXIDE SUSP 30 ML UDCUP PO PRN (20:28)
[2019-04-09] MEDS: ALBUTEROL/IPRATROPIUM 3 ML NEB RESP TX SCH ×4 (00:54→19:49)
[2019-04-09] MEDS ORDERED: CALCIUM ACETATE 667 MG CAPSULE PO SCH (08:30)
[2019-04-09] MEDS: CALCIUM ACETATE 667 MG CAPSULE PO SCH ×3 (09:58→17:25)
[2019-04-09] MEDS: INSULIN REGULAR 100 UNIT/ML SUBCUT SCH ×4 (09:58→23:31)
[2019-04-09] MEDS ORDERED: HEPARIN 1,000 UNIT/1 ML VIAL ONE (10:10)
[2019-04-09] MEDS: DOCUSATE SODIUM 100 MG CAPSULE PO SCH (12:46)
[2019-04-09] MEDS: SODIUM HYPOCHLORITE 0.25% IRRIG 473 ML BOTTLE TOP SCH (12:46)
[2019-04-09] MEDS: ASPIRIN EC 81 MG TABLET PO SCH (12:46)
[2019-04-09] MEDS: PANTOPRAZOLE 40 MG TABLET PO SCH (12:46)
[2019-04-09] MEDS: MAGNESIUM HYDROXIDE SUSP 30 ML UDCUP PO PRN (12:49)
[2019-04-09] MEDS: METOPROLOL TARTRATE 25 MG TABLET PO SCH ×2 (12:52→23:33)
[2019-04-09] MEDS: ONDANSETRON 4 MG/2 ML VIAL IV PRN (18:10)
[2019-04-09 18:21] LABS: Calcium 9.4 MG/DL (8.5-10.1)
[2019-04-09] MEDS: ATORVASTATIN 40 MG TABLET PO SCH (23:32)
[2019-04-09] MEDS: CALCIUM CARBONATE CHEW 500 MG TABLET PO PRN (23:33)
[2019-04-10] MEDS: ALBUTEROL/IPRATROPIUM 3 ML NEB RESP TX SCH ×4 (00:19→19:05)
[2019-04-10] MEDS: CALCIUM ACETATE 667 MG CAPSULE PO SCH ×3 (08:43→17:24)
[2019-04-10] MEDS: INSULIN REGULAR 100 UNIT/ML SUBCUT SCH ×4 (08:43→20:32)
[2019-04-10] MEDS: METOPROLOL TARTRATE 25 MG TABLET PO SCH ×2 (12:03→21:42)
[2019-04-10] MEDS: DOCUSATE SODIUM 100 MG CAPSULE PO SCH (12:48)
[2019-04-10] MEDS: SODIUM HYPOCHLORITE 0.25% IRRIG 473 ML BOTTLE TOP SCH (12:48)
[2019-04-10] MEDS: PANTOPRAZOLE 40 MG TABLET PO SCH (12:48)
[2019-04-10] MEDS: ASPIRIN EC 81 MG TABLET PO SCH (12:48)
[2019-04-10] MEDS: CALCIUM CARBONATE CHEW 500 MG TABLET PO PRN (18:32)
[2019-04-10] MEDS: ATORVASTATIN 40 MG TABLET PO SCH (21:42)
[2019-04-11] MEDS: ALBUTEROL/IPRATROPIUM 3 ML NEB RESP TX SCH ×4 (00:41→20:52)
[2019-04-11] MEDS: INSULIN REGULAR 100 UNIT/ML SUBCUT SCH ×4 (07:57→20:22)
[2019-04-11] MEDS: CALCIUM ACETATE 667 MG CAPSULE PO SCH ×3 (08:56→16:35)
[2019-04-11] MEDS: PANTOPRAZOLE 40 MG TABLET PO SCH (08:57)
[2019-04-11] MEDS: SODIUM HYPOCHLORITE 0.25% IRRIG 473 ML BOTTLE TOP SCH (08:57)
[2019-04-11] MEDS: ASPIRIN EC 81 MG TABLET PO SCH (08:57)
[2019-04-11] MEDS: METOPROLOL TARTRATE 25 MG TABLET PO SCH ×2 (08:57→20:41)
[2019-04-11] MEDS: DOCUSATE SODIUM 100 MG CAPSULE PO SCH (08:57)
[2019-04-11 09:16] LABS: Calcium 9.8 MG/DL (8.5-10.1); Osmolality,Calculated 284.5 MOS/KG (273-304)
[2019-04-11] MEDS: ATORVASTATIN 40 MG TABLET PO SCH (20:41)
[2019-04-12] MEDS: ALBUTEROL/IPRATROPIUM 3 ML NEB RESP TX SCH ×4 (01:45→19:55)
[2019-04-12] MEDS: ACETAMINOPHEN 325 MG TABLET PO PRN ×3 (07:32→21:01)
[2019-04-12] MEDS: INSULIN REGULAR 100 UNIT/ML SUBCUT SCH ×3 (08:03→15:34)
[2019-04-12] MEDS: METOPROLOL TARTRATE 25 MG TABLET PO SCH ×2 (08:15→21:00)
[2019-04-12] MEDS: DOCUSATE SODIUM 100 MG CAPSULE PO SCH (08:15)
[2019-04-12] MEDS: ASPIRIN EC 81 MG TABLET PO SCH (08:15)
[2019-04-12] MEDS: PANTOPRAZOLE 40 MG TABLET PO SCH (08:16)
[2019-04-12] MEDS: CALCIUM ACETATE 667 MG CAPSULE PO SCH ×3 (08:16→17:19)
[2019-04-12] MEDS: SODIUM HYPOCHLORITE 0.25% IRRIG 473 ML BOTTLE TOP SCH (08:17)
[2019-04-12] MEDS: MAGNESIUM HYDROXIDE SUSP 30 ML UDCUP PO PRN (14:01)
[2019-04-12] MEDS ORDERED: HEPARIN 1,000 UNIT/1 ML VIAL ONE (14:59)
[2019-04-12] MEDS: ATORVASTATIN 40 MG TABLET PO SCH (21:00)
[2019-04-13] MEDS: INSULIN REGULAR 100 UNIT/ML SUBCUT SCH ×5 (00:29→22:34)
[2019-04-13] MEDS: ALBUTEROL/IPRATROPIUM 3 ML NEB RESP TX SCH ×4 (01:50→18:57)
[2019-04-13] MEDS ORDERED: DEXTROSE 50% 25 GM/50 ML VIAL IV PRN (07:09)
[2019-04-13] MEDS: DOCUSATE SODIUM 100 MG CAPSULE PO SCH (10:05)
[2019-04-13] MEDS: METOPROLOL TARTRATE 25 MG TABLET PO SCH ×2 (10:05→22:35)
[2019-04-13] MEDS: PANTOPRAZOLE 40 MG TABLET PO SCH (10:05)
[2019-04-13] MEDS: CALCIUM ACETATE 667 MG CAPSULE PO SCH ×3 (10:05→17:03)
[2019-04-13] MEDS: ASPIRIN EC 81 MG TABLET PO SCH (10:05)
[2019-04-13] MEDS: SODIUM HYPOCHLORITE 0.25% IRRIG 473 ML BOTTLE TOP SCH (10:05)
[2019-04-13] MEDS: CALCIUM CARBONATE CHEW 500 MG TABLET PO PRN (18:17)
[2019-04-13] MEDS: ATORVASTATIN 40 MG TABLET PO SCH (22:35)
[2019-04-13] MEDS: ACETAMINOPHEN 325 MG TABLET PO PRN (22:38)
[2019-04-14] MEDS: ALBUTEROL/IPRATROPIUM 3 ML NEB RESP TX SCH ×4 (01:13→19:56)
[2019-04-14 06:01] LABS: Basophils # 0.1 10*3/uL (0.0-0.2); Basophils % 0.9 % (0.0-0.8); Eosinophils # 0.6 10*3/uL (0.0-0.87); Eosinophils % 9.1 % (0.00-10.9); Hematocrit 28.4 VOL% (35.7-47.0); Hemoglobin 8.5 GM/DL (12.0-16.0); Immature Granulocytes % 0.3 %; Immature Granulocytes Absolute 0.02 #; Lymphocytes # 0.8 10*3/uL (1.4-4.0); Lymphocytes % 11.7 % (21.3-54.2); Mean Corpuscular HGB Conc 29.9 GM/DL (32-36); Mean Corpuscular Volume 99.6 FL (87-102); Mean Platelet Volume 10.1 FL (9.6-12.0); Monocytes % 6.6 % (1.7-12.7); Neutrophils % 71.4 % (38.7-73.9); Platelet Count 214 T/CUMM (130-400); Red Blood Count 2.85 MC/CUMM (3.8-5.5); Red Cell Distribution Width 14.1 % (9.3-17.3); White Blood Count 6.5 T/CUMM (4-12)
[2019-04-14 06:23] LABS: Calcium 9.6 MG/DL (8.5-10.1); Osmolality,Calculated 290.7 MOS/KG (273-304)
[2019-04-14] MEDS: CALCIUM ACETATE 667 MG CAPSULE PO SCH ×3 (07:46→16:55)
[2019-04-14] MEDS: INSULIN REGULAR 100 UNIT/ML SUBCUT SCH ×4 (07:46→22:07)
[2019-04-14] MEDS: METOPROLOL TARTRATE 25 MG TABLET PO SCH ×2 (08:21→22:07)
[2019-04-14] MEDS: ASPIRIN EC 81 MG TABLET PO SCH (08:21)
[2019-04-14] MEDS: PANTOPRAZOLE 40 MG TABLET PO SCH (08:21)
[2019-04-14] MEDS: DOCUSATE SODIUM 100 MG CAPSULE PO SCH (08:21)
[2019-04-14] MEDS: SODIUM HYPOCHLORITE 0.25% IRRIG 473 ML BOTTLE TOP SCH (08:21)
[2019-04-14] MEDS: ACETAMINOPHEN 325 MG TABLET PO PRN ×2 (17:46→22:10)
[2019-04-14] MEDS: CALCIUM CARBONATE CHEW 500 MG TABLET PO PRN (22:07)
[2019-04-14] MEDS: ATORVASTATIN 40 MG TABLET PO SCH (22:07)
[2019-04-15] MEDS: ALBUTEROL/IPRATROPIUM 3 ML NEB RESP TX SCH ×4 (00:35→19:40)
[2019-04-15] MEDS: ACETAMINOPHEN 325 MG TABLET PO PRN (05:22)
[2019-04-15] MEDS: INSULIN REGULAR 100 UNIT/ML SUBCUT SCH ×4 (07:54→20:46)
[2019-04-15] MEDS: SODIUM HYPOCHLORITE 0.25% IRRIG 473 ML BOTTLE TOP SCH (09:12)
[2019-04-15] MEDS: PANTOPRAZOLE 40 MG TABLET PO SCH (09:12)
[2019-04-15] MEDS: CALCIUM ACETATE 667 MG CAPSULE PO SCH ×3 (09:12→16:32)
[2019-04-15] MEDS: ASPIRIN EC 81 MG TABLET PO SCH (09:12)
[2019-04-15] MEDS: METOPROLOL TARTRATE 25 MG TABLET PO SCH ×2 (09:12→20:13)
[2019-04-15] MEDS: DOCUSATE SODIUM 100 MG CAPSULE PO SCH (09:12)
[2019-04-15] MEDS: ATORVASTATIN 40 MG TABLET PO SCH (20:14)
[2019-04-16] MEDS: ALBUTEROL/IPRATROPIUM 3 ML NEB RESP TX SCH ×4 (00:45→14:09)
[2019-04-16] MEDS: DOCUSATE SODIUM 100 MG CAPSULE PO SCH (09:05)
[2019-04-16] MEDS: METOPROLOL TARTRATE 25 MG TABLET PO SCH (09:05)
[2019-04-16] MEDS: PANTOPRAZOLE 40 MG TABLET PO SCH (09:05)
[2019-04-16] MEDS: ASPIRIN EC 81 MG TABLET PO SCH (09:05)
[2019-04-16] MEDS: CALCIUM ACETATE 667 MG CAPSULE PO SCH ×2 (09:07→14:57)
[2019-04-16] MEDS: INSULIN REGULAR 100 UNIT/ML SUBCUT SCH ×3 (09:08→16:44)
[2019-04-16 11:41] LABS: Basophils # 0.1 10*3/uL (0.0-0.2); Basophils % 0.8 % (0.0-0.8); Eosinophils # 0.4 10*3/uL (0.0-0.87); Eosinophils % 6.2 % (0.00-10.9); Hematocrit 27.8 VOL% (35.7-47.0); Hemoglobin 8.4 GM/DL (12.0-16.0); Immature Granulocytes % 0.6 %; Immature Granulocytes Absolute 0.04 #; Lymphocytes # 0.5 10*3/uL (1.4-4.0); Lymphocytes % 6.7 % (21.3-54.2); Mean Corpuscular HGB Conc 30.2 GM/DL (32-36); Mean Corpuscular Volume 99.6 FL (87-102); Mean Platelet Volume 10.1 FL (9.6-12.0); Monocytes % 4.1 % (1.7-12.7); Neutrophils % 81.6 % (38.7-73.9); Platelet Count 244 T/CUMM (130-400); Red Blood Count 2.79 MC/CUMM (3.8-5.5); Red Cell Distribution Width 14.1 % (9.3-17.3); White Blood Count 7.1 T/CUMM (4-12)
[2019-04-16 15:02] VITALS: BP 135/66
[2019-04-16] MEDS: SODIUM HYPOCHLORITE 0.25% IRRIG 473 ML BOTTLE TOP SCH (16:44)
== END 2019-04-16 17:36 | disposition home or self-care (01) | DRG 228 ==
LOC: EDBD → EDUNIT# → N.ED 08:47 → N.5E 08:47 → SUATTDRO 14:25 → N.CC 03-27 18:05 → SUATTDRO 03-28 13:30 → N.5E 03-29 18:19 → N.CC 04-01 12:53 → N.5E 04-04 11:18
PROVIDERS: ADMIT Internal Medicine; ATTEND Internal Medicine
PROC: VAVDCFI (2019-03-27 12:01)
PROC: CLMICRA (2019-04-03 13:15)

== ENCOUNTER 2020-02-02 21:33 | Observation (INO) ==
[2020-02-02] MEDS ORDERED: ZALEPLON 5 MG CAPSULE PO PRN (22:32)
[2020-02-02] MEDS ORDERED: NICOTINE 21 MG/24 HR PATCH TRANSDERM PRN (22:32)
[2020-02-02] MEDS ORDERED: ACETAMINOPHEN 325 MG TABLET PO PRN (22:32)
[2020-02-02] MEDS ORDERED: GLUCAGON 1 MG VIAL IM PRN (22:32)
[2020-02-02] MEDS ORDERED: hydrALAZINE 20 MG/1 ML VIAL IV PRN (22:32)
[2020-02-02] MEDS ORDERED: PROMETHAZINE 25 MG/1 ML VIAL IM PRN (22:32)
[2020-02-02] MEDS ORDERED: MORPHINE 4 MG/1 ML VIAL IV PRN (22:32)
[2020-02-02] MEDS ORDERED: diphenhydrAMINE CAP 25 MG CAPSULE PO PRN (22:32)
[2020-02-02] MEDS ORDERED: ONDANSETRON 4 MG/2 ML VIAL IV PRN (22:32)
[2020-02-02] MEDS ORDERED: guaiFENesin/DM ER 600-30 MG TABLET PO PRN (22:32)
[2020-02-02] MEDS ORDERED: DOCUSATE SODIUM 100 MG CAPSULE PO PRN (22:32)
[2020-02-02] MEDS ORDERED: ALBUTEROL 2.5 MG/3 ML NEB RESP TX PRN (22:32)
[2020-02-02 22:35] LABS: Basophils # 0.1 10*3/uL (0.0-0.2); Basophils % 0.6 % (0.0-0.8); Eosinophils # 0.3 10*3/uL (0.0-0.87); Eosinophils % 3.2 % (0.00-10.9); Hematocrit 33.9 VOL% (35.7-47.0); Hemoglobin 10.9 GM/DL (12.0-16.0); Immature Granulocytes % 0.4 %; Immature Granulocytes Absolute 0.03 #; Lymphocytes # 0.9 10*3/uL (1.4-4.0); Mean Corpuscular HGB Conc 32.2 GM/DL (32-36); Mean Platelet Volume 10.6 FL (9.6-12.0); Monocytes % 6.2 % (1.7-12.7); Neutrophils % 78.6 % (38.7-73.9); Platelet Count 163 T/CUMM (130-400); Red Blood Count 3.46 MC/CUMM (3.8-5.5); Red Cell Distribution Width 13.1 % (9.3-17.3); White Blood Count 8.5 T/CUMM (4-12)
[2020-02-02] MEDS ORDERED: DEXTROSE 10% 250 ML BAG IV PRN (22:41)
[2020-02-02 22:44] LABS: PT Patient Result 11.1 SECS (9.8-11.9); Partial Thromboplastin Time 30.3 SECS (23.9-33.8)
[2020-02-02 22:49] LABS: Albumin 3.2 G/DL (3.4-5.0); Bilirubin,Total 0.4 MG/DL (0.2-1.0); Calcium 9.1 MG/DL (8.5-10.1); Osmolality,Calculated 280.8 MOS/KG (273-304); Total Protein 7.9 G/DL (6.4-8.3)
[2020-02-03] MEDS ORDERED: DEXTROSE 50% 25 GM/50 ML VIAL IV PRN (06:09)
[2020-02-03] MEDS ORDERED: METOPROLOL TARTRATE 25 MG TABLET PO PRN (06:10)
[2020-02-03] MEDS ORDERED: CETIRIZINE 10 MG TABLET PO PRN (06:10)
[2020-02-03] MEDS ORDERED: NITROGLYCERIN SL 0.4 MG TABLET SL PRN (06:10)
[2020-02-03] MEDS ORDERED: CALCIUM ACETATE 667 MG CAPSULE PO SCH (06:30)
[2020-02-03 06:36] LABS: Basophils # 0.1 10*3/uL (0.0-0.2); Basophils % 0.8 % (0.0-0.8); Eosinophils # 0.3 10*3/uL (0.0-0.87); Hemoglobin 9.1 GM/DL (12.0-16.0); Immature Granulocytes % 0.4 %; Immature Granulocytes Absolute 0.03 #; Lymphocytes # 0.9 10*3/uL (1.4-4.0); Lymphocytes % 13.1 % (21.3-54.2); Mean Corpuscular HGB Conc 31.4 GM/DL (32-36); Mean Platelet Volume 10.6 FL (9.6-12.0); Monocytes % 7.1 % (1.7-12.7); Neutrophils % 74.6 % (38.7-73.9); Platelet Count 158 T/CUMM (130-400); White Blood Count 7.2 T/CUMM (4-12)
[2020-02-03 06:59] LABS: Calcium 9.2 MG/DL (8.5-10.1); Osmolality,Calculated 276.8 MOS/KG (273-304)
[2020-02-03] MEDS ORDERED: Ferric Citrate [Auryxia] 420 MG PO SCH (08:00)
[2020-02-03] MEDS: INSULIN LISPRO 100 UNIT/ML SUBCUT SCH ×4 (08:48→20:27)
[2020-02-03] MEDS: PANTOPRAZOLE 40 MG TABLET PO SCH (08:49)
[2020-02-03] MEDS: MULTIVITAMIN (BEROCCA) TABLET PO SCH (08:49)
[2020-02-03] MEDS ORDERED: ATORVASTATIN 20 MG TABLET PO SCH (21:00)
[2020-02-04 07:14] LABS: Basophils # 0.1 10*3/uL (0.0-0.2); Basophils % 0.9 % (0.0-0.8); Eosinophils # 0.3 10*3/uL (0.0-0.87); Eosinophils % 4.4 % (0.00-10.9); Hematocrit 31.1 VOL% (35.7-47.0); Immature Granulocytes % 0.4 %; Immature Granulocytes Absolute 0.03 #; Lymphocytes # 1.2 10*3/uL (1.4-4.0); Lymphocytes % 16.2 % (21.3-54.2); Mean Corpuscular HGB Conc 32.2 GM/DL (32-36); Mean Corpuscular Volume 98.4 FL (87-102); Mean Platelet Volume 11.1 FL (9.6-12.0); Monocytes % 6.8 % (1.7-12.7); Neutrophils % 71.3 % (38.7-73.9); Platelet Count 168 T/CUMM (130-400); Red Blood Count 3.16 MC/CUMM (3.8-5.5); Red Cell Distribution Width 13.2 % (9.3-17.3); White Blood Count 7.5 T/CUMM (4-12)
[2020-02-04] MEDS: INSULIN LISPRO 100 UNIT/ML SUBCUT SCH ×2 (07:52→11:30)
[2020-02-04 07:56] LABS: Calcium 9.6 MG/DL (8.5-10.1); Osmolality,Calculated 276.2 MOS/KG (273-304)
[2020-02-04] MEDS: PANTOPRAZOLE 40 MG TABLET PO SCH (08:11)
[2020-02-04] MEDS: MULTIVITAMIN (BEROCCA) TABLET PO SCH (08:11)
[2020-02-04 12:37] VITALS: BP 124/49
== END 2020-02-04 15:14 | disposition home or self-care (01) ==
LOC: N.ED 21:33 → N.EDINP 21:33 → SUATTDRO 22:32 → N.3E 23:01
PROVIDERS: ADMIT Emergency Medicine; ATTEND Internal Medicine